=== PATIENT | female | born 1945 | race Caucasian/White ===

== ENCOUNTER 2018-07-08 04:02 | Observation (INO) ==
--- NOTE | 2018-07-08 04:23 | Emergency Department Note ---
Disposition Clinical Impression: UTI (urinary tract infection), Dehydration, Change in mental status Disposition: Admitted As Inpatient Condition: Fair General Adult HPI - General Chief complaint: ED General Medical Stated complaint: WILLIE/ swollen legs Time Seen by Provider: 07/08/18 04:04 Source: patient Mode of arrival: private vehicle Limitations: no limitations Nursing Notes Reviewed: Yes Vital Signs Reviewed: Yes - History of Present Illness HPI Narrative: 73-year-old female with a history of diabetes, asthma, hyperlipidemia, hypertension, rheumatoid arthritis, RLS, anxiety, depression presents to emergency room for 2 days of "feeling hot", "I worry about my heart because my sister had a heart attack", "my legs are swollen". Patient does state that she "gets tired easier" when walking around her house. Patient states multiple recent falls with bruising, states history of a blood clot in her leg with Dr. grider on aspirin for, who said this was relatively recently but the doctor said "not to worry about it". Pt states current infection to right ear, she is on ear gtts. Previous surgerys to ears, last in 1999 Patient is accompanied with daughter who states patient has been slowly "declining" since the of her . According to the daughter, patient had just taken her Ambien at 3:30 AM. Daughter states patient typically lives at home is completely independent. She states she has noticed an increase in anxiety since patient's a few months ago. Over the last few days daughter states patient is has not been "right." Daughter states edema to bilateral lower legs is chronic and waxes and wanes based on sleeping position, she does not notice an increase in the bilateral lower extremity edema. Daughter states patient has been falling more in the daughter is not convinced that it is due to the ear infection. Daughter states patient did have a blood clot to her leg though it was "not a major 1", it was right behind her knee. Patient and daughter both deny fever, chills, wheezing, coughing, rhinorrhea, postnasal drip, abdominal pain, nausea, vomiting, diarrhea, genitourinary changes, hematemesis, hematochezia, melena. Onset (ago): day(s) - Related Data Home Medications Medication Instructions Recorded Confirmed Albuterol Sulfate [Ventolin Hfa] 2 puff IH Q4H PRN 07/08/18 07/08/18 Aspirin [Lo-Dose Aspirin EC] 81 mg PO DAILY 07/08/18 07/08/18 Calcium Citrate/Vitamin D3 1 each PO DAILY 07/08/18 07/08/18 [Calcium Citrate with D Tablet] Cetirizine HCl [24Hour Allergy] 10 mg PO DAILY 07/08/18 07/08/18 Cholecalciferol (D-3) [Vitamin D] 2,000 unit PO DAILY 07/08/18 07/08/18 Citalopram Hydrobromide [Celexa] 40 mg PO DAILY 07/08/18 07/08/18 Folic Acid 1 mg PO DAILY 07/08/18 07/08/18 Gabapentin [Neurontin] 1,200 mg PO BID 07/08/18 07/09/18 Hydrochlorothiazide [Microzide] 25 mg PO DAILY 07/08/18 07/08/18 Leucovorin Calcium [Wellcovorin] 5 mg PO QWEEK 07/08/18 07/08/18 Losartan Potassium [Cozaar] 100 mg PO DAILY 07/08/18 07/08/18 Methotrexate [Otrexup] 17.5 mg PO DEL CID 07/08/18 07/08/18 Multivit-Min/Iron/Folic Acid/K 1 tab PO DAILY 07/08/18 07/08/18 [Adults Multivitamin Caplet] Ofloxacin *EAR* Drops [Floxin] 10 drop LEFT EAR HS MDD FOR 7 DAYS 07/08/1807/08 PredniSONE [Madhu] 5 mg PO BID PRN 07/08/18 07/08/18 Ranitidine HCl [Acid Fleet Technician] 150 mg PO HS 07/08/18 07/08/18 Ropinirole HCl [Requip] 5 mg PO HS 07/08/18 07/08/18 Sulfasalazine [Azulfidine] 500 mg PO BID 07/08/18 07/08/18 Tocilizumab [Actemra] mg IV Q4W 07/08/18 Tramadol HCl [Ultram] 50 - 100 mg PO Q6H PRN 07/08/18 07/08/18 Zolpidem [Ambien] 5 mg PO HS 07/08/18 07/08/18 hydrOXYzine HCl [Hydroxyzine HCl] 25 mg PO HS PRN 07/08/18 07/08/18 rOPINIRole [Requip] 2 mg PO DAILY 07/08/18 07/08/18 Allergies Allergy/AdvReac Type Severity Reaction Status Date / Time acetaminophen AdvReac Nausea Verified 07/08/18 09:10 [From Tylenol-Codeine #3] Amoxicillin AdvReac Vomiting Verified 07/08/18 09:10 codeine AdvReac Nausea Verified 07/08/18 09:10 [From Tylenol-Codeine #3] levofloxacin [From Levaquin] AdvReac Vomiting Verified 07/08/18 09:10 All systems ED: reviewed and negative except as stated. Review of Systems: As Per HPI Past Medical History - Past Medical History Attestation: Yes The following information was validated with the patient. Source: patient, old records reviewed Medical history: Reports: asthma, hyperlipidemia, hypertension, RA Surgical history: Reports: appendectomy, cholecystectomy, orthopedic, other, DIVINA /BSO Psychiatric history: Reports: anxiety, depression - Social History Smoking Status: Never smoker Smokeless Tobacco Status: No Alcohol use: Reports: occasionally Drug use: Reports: none Physical Exam - General Limitations: no limitations General appearance: alert, in no apparent distress - Head Head exam: atraumatic, normocephalic, normal inspection - Eye Eye exam: Present: normal appearance, PERRL, EOMI - ENT ENT exam: normal exam, mucous membranes moist - Expanded ENT Exam External ear exam: Present: normal external inspection TM/Canal: Erythema: Left TM, Cerumen impaction: Left TM, Canal tenderness: Left TM Mouth exam: Present: normal external inspection Teeth exam: Present: normal inspection Throat exam: Present: normal inspection - Neck Neck exam: Present: normal inspection, full ROM, trachea midline. Absent: tenderness, lymphadenopathy - Chest Chest inspection: Present: normal inspection, symmetric chest wall rise - Respiratory Respiratory exam: Present: normal lung sounds bilaterally - Cardiovascular Cardiovascular exam: Present: regular rate, normal rhythm, normal heart sounds, other (Bilateral pedal edema left greater than right, 2+ pitting) - Abdominal Exam Abdominal exam: Present: soft, Non-Tender, normal bowel sounds. Absent: tenderness, distention, guarding, rebound, rigidity, organomegaly, Frazier's sign , Rovsing's sign, mass - Expanded Lower Extremity Exam Hip/Pelvis exam: Present: normal inspection, full ROM Upper leg exam: Present: normal inspection, full ROM Knee exam: Present: full ROM, tenderness (With palpation right knee), ecchymosis (Large, feeding with right knee), knee extension intact. Absent: swelling, abrasion, laceration, deformity, crepitus, dislocation, erythema Lower leg exam: Present: normal inspection, full ROM Ankle exam: Present: normal inspection, full ROM Foot/toe exam: Present: normal inspection, full ROM Neurovascular/Tendon exam: Present: normal capillary refill, normal 2-point discrimination. Absent: pulse deficit, motor deficit, sensory deficit Gait: observed and normal - Back Exam Back exam: Present: normal inspection, full ROM. Absent: tenderness - Neurological Exam Neurological exam: Present: alert, oriented X3 - Expanded Neurological Exam Patient oriented to: Present: person, place, time Speech: Present: fluid speech Coma Scale Eye Opening: Spontaneous Coma Scale Motor Response: Obeys Commands Coma Scale Verbal Response: Oriented Coma Scale Total: 15 - Psychiatric Psychiatric exam: Present: normal affect, normal mood - Skin Skin exam: Present: warm, dry, intact, normal color Course Course Narrative: 73-year-old pleasantly confused female in no acute distress. Patient is alert and oriented 3 though she does appear slightly confused with conversation. Unsure if this is due to illness, or recent ingestion of Ambien. Physical exam shows patient moving bilateral lower extremities frequently and rubbing them, appropriate for RLS, right knee noted with fading ecchymosis, pain with movement and palpation to the patella region. Various ecchymosis to bilateral legs, trunk in various stages of healing due to recent falls. Patient ambulates with a slow and unsteady gait. We will obtain basic labs, chest x-ray, EKG and reevaluate. Review of records shows venous duplex in March 2018 with occluded varicose vein to the left calf. All of the deep venous systems were negative for DVT. - Reevaluation(s) Reevaluation #1: Patient has continued to be very anxious, moving her legs and rocking. We gave a dose of Ativan without resolution, we will add a small dose of Haldol. Ordered CT of the head without contrast for evaluation due to recent falls, apparent alteration in mental status. Last labs we have in our system or from 2015, face up on those labs the CBC is benign, patient is hemoglobin slightly low at 11.2, red blood cells 2.99 though looking at previous labs she was around there frequently. Metabolic panel shows an elevated creatinine, elevated BUN, decrease in GFR compared to most recent labs which again were in 2016. UA reveals positive nitrites, leukocyte esterases, white blood cells indicative of UTI. Chest x-ray is unremarkable, right knee x-rays unremarkable. Plan is for admission for acute kidney injury, altered mental status, UTI pending head CT. Time: 06:18 Vital Signs Temperature 98.1 F 07/08/18 04:06 Pulse Rate 89 07/08/18 04:06 Respiratory Rate 20 07/08/18 04:06 Blood Pressure 144/106 07/08/18 04:06 O2 Sat by Pulse Oximetry 97 07/08/18 04:06 Temperature 98.2 F 07/09/18 18:44 Pulse Rate 80 07/09/18 18:44 Respiratory Rate 17 07/09/18 18:44 Blood Pressure 133/72 07/09/18 18:44 O2 Sat by Pulse Oximetry 93 07/09/18 18:44 Oxygen Delivery Oxygen Delivery Room Air Medical Decision Making - Lab Data Result diagrams: 07/09/18 08:26 07/09/18 06:19 Lab Results 07/08/18 07/08/18 07/08/18 Range/Units 04:20 04:20 04:20 WBC 5.1 (4.3-11.1) K/mcL RBC 2.99 L (3.82-4.97) M/mcL Hgb 11.2 L (11.5-15.4) g/dL Hct 32.1 L (35.3-44.9) % MCV 107.4 H (83.0-100.0) fL MCH 37.5 H (28.0-33.3) pg MCHC 34.9 (31.6-35.5) g/dL RDW 12.9 (11.5-14.5) % Plt Count 166 (140-400) K/mcL MPV 10.2 (9.4-12.4) fL Immature Gran % 0.2 (0-4) % Seg Neutrophils % 61.5 % Lymphocytes % 15.8 % Monocytes % 16.6 % Eosinophils % 4.7 % Basophils % 1.2 % Neutrophils # 3.1 (1.6-8.9) K/mcL Lymphocytes # 0.8 (0.6-4.6) K/mcL Monocytes # 0.8 (0.0-1.3) K/mcL Eosinophils # 0.2 (0.0-0.6) K/mcL Basophils # 0.1 (0.0-0.2) K/mcL Sodium 136 (136-145) mEq/L Potassium 3.9 (3.5-5.1) mEq/L Chloride 104 (98-107) mEq/L Carbon Dioxide 25 (23-29) mEq/L BUN 28 H (8-23) mg/dL Creatinine 1.42 H (0.60-1.20) mg/dL Est GFR ( Amer) 44 L (> 60) Est GFR (Non-Af Amer) 36 L (> 60) BUN/Creatinine Ratio 20 (6-26) Glucose 119 H (70-105) mg/dL Calculated Osmolality 289 (280-300) Calcium 9.0 (8.6-10.3) mg/dL Iron 111 (50-170) mcg/dL % Saturation 32 (15-50) % Transferrin 245 (203-362) mg/dL Ferritin 105 (10-120) ng/mL Total Bilirubin 0.3 (0.3-1.0) mg/dL Direct Bilirubin 0.0 (0.0-0.2) mg/dL Indirect Bilirubin 0.3 (0.0-1.2) mg/dL AST 31 (13-39) Units/L ALT 31 (7-52) Units/L Alkaline Phosphatase 46 (34-104) Units/L Troponin I < 0.03 (< 0.04) ng/mL Serum Total Protein 6.0 L (6.4-8.9) g/dL Albumin 4.0 (3.5-5.7) g/dL Globulin 2.0 L (2.4-3.5) g/dL Albumin/Globulin Ratio 2.0 (1.1-2.2) Urine Color (Yellow) Urine Clarity (Clear) Urine pH (5.0-8.0) pH Units Ur Specific [place] (1.010-1.025) Urine Protein (Neg-Trace) mg/dL Urine Glucose (UA) (Normal) mg/dL Urine Ketones (Negative) mg/dL Urine Blood (Negative) Urine Nitrite (Negative) Urine Bilirubin (Negative) Urine Urobilinogen (Normal) mg/dL Ur Leukocyte Esterase (Negative) Urine Microscopic RBC (0-3) per hpf Urine Microscopic WBC (0-3) per hpf Ur Squamous Epith Cells (None-Few) per lpf Urine Bacteria (None-Few) per hpf Hyaline Casts (None-Few) per lpf Ur Culture Indicated? (NO) 07/08/18 Range/Units 05:41 WBC (4.3-11.1) K/mcL RBC (3.82-4.97) M/mcL Hgb (11.5-15.4) g/dL Hct (35.3-44.9) % MCV (83.0-100.0) fL MCH (28.0-33.3) pg MCHC (31.6-35.5) g/dL RDW (11.5-14.5) % Plt Count (140-400) K/mcL MPV (9.4-12.4) fL Immature Gran % (0-4) % Seg Neutrophils % % Lymphocytes % % Monocytes % % Eosinophils % % Basophils % % Neutrophils # (1.6-8.9) K/mcL Lymphocytes # (0.6-4.6) K/mcL Monocytes # (0.0-1.3) K/mcL Eosinophils # (0.0-0.6) K/mcL Basophils # (0.0-0.2) K/mcL Sodium (136-145) mEq/L Potassium (3.5-5.1) mEq/L Chloride (98-107) mEq/L Carbon Dioxide (23-29) mEq/L BUN (8-23) mg/dL Creatinine (0.60-1.20) mg/dL Est GFR ( Amer) (> 60) Est GFR (Non-Af Amer) (> 60) BUN/Creatinine Ratio (6-26) Glucose (70-105) mg/dL Calculated Osmolality (280-300) Calcium (8.6-10.3) mg/dL Iron (50-170) mcg/dL % Saturation (15-50) % Transferrin (203-362) mg/dL Ferritin (10-120) ng/mL Total Bilirubin (0.3-1.0) mg/dL Direct Bilirubin (0.0-0.2) mg/dL Indirect Bilirubin (0.0-1.2) mg/dL AST (13-39) Units/L ALT (7-52) Units/L Alkaline Phosphatase (34-104) Units/L Troponin I (< 0.04) ng/mL Serum Total Protein (6.4-8.9) g/dL Albumin (3.5-5.7) g/dL Globulin (2.4-3.5) g/dL Albumin/Globulin Ratio (1.1-2.2) Urine Color Yellow (Yellow) Urine Clarity Clear (Clear) Urine pH 6.0 (5.0-8.0) pH Units Ur Specific [place] 1.010 (1.010-1.025) Urine Protein Negative (Neg-Trace) mg/dL Urine Glucose (UA) Normal (Normal) mg/dL Urine Ketones Negative (Negative) mg/dL Urine Blood Negative (Negative) Urine Nitrite Positive A (Negative) Urine Bilirubin Negative (Negative) Urine Urobilinogen Normal (Normal) mg/dL Ur Leukocyte Esterase Small H (Negative) Urine Microscopic RBC 0-3 (0-3) per hpf Urine Microscopic WBC 5-15 H (0-3) per hpf Ur Squamous Epith Cells Moderate H (None-Few) per lpf Urine Bacteria Many H (None-Few) per hpf Hyaline Casts None Seen (None-Few) per lpf Ur Culture Indicated? YES A (NO) S.B.A.R. - S.B.A.R. Situation: Demographics, MOA Background: Presenting Complaint, Relevant PMH, Meds, & Allergies Assessment: Vital Signs, Course and respsone to treatment, Exam Concerns, Patient/Family Expectation, Pertinant Lab Results, Outstanding Labs Recommendation: Barrier(s) to disposition, Recommendation based on pending studies, treatments, or consults S.B.A.R. Report Given to: Roscoe Mercer CNP S.B.A.R. Repor Time: 06:00
[2018-07-08 04:32] LABS: Basophils # 0.1 K/mcL (0.0-0.2); Basophils % 1.2 %; Eosinophils # 0.2 K/mcL (0.0-0.6); Eosinophils % 4.7 %; Hematocrit 32.1 % (35.3-44.9); Hemoglobin 11.2 g/dL (11.5-15.4); Immature Granulocytes % 0.2 % (0-4); Lymphocytes # 0.8 K/mcL (0.6-4.6); Lymphocytes % 15.8 %; Mean Corpuscular HGB Conc 34.9 g/dL (31.6-35.5); Mean Corpuscular Hemoglobin 37.5 pg (28.0-33.3); Mean Corpuscular Volume 107.4 fL (83.0-100.0); Mean Platelet Volume 10.2 fL (9.4-12.4); Monocytes # 0.8 K/mcL (0.0-1.3); Monocytes % 16.6 %; Neutrophils # 3.1 K/mcL (1.6-8.9); Platelet Count 166 K/mcL (140-400); Red Blood Count 2.99 M/mcL (3.82-4.97); Red Cell Distribution Width 12.9 % (11.5-14.5); Segmented Neutrophils % 61.5 %
[2018-07-08 05:01] LABS: Alanine Aminotransferase 31 Units/L (7-52); Alkaline Phosphatase 46 Units/L (34-104); Aspartate Amino Transferase 31 Units/L (13-39); BUN/Creatinine Ratio 20 (6-26); Bilirubin,Indirect 0.3 mg/dL (0.0-1.2); Bilirubin,Total 0.3 mg/dL (0.3-1.0); Blood Urea Nitrogen 28 mg/dL (8-23); Carbon Dioxide 25 mEq/L (23-29); Chloride 104 mEq/L (98-107); Glucose 119 mg/dL (70-105); Osmolality,Calculated 289 (280-300); Potassium 3.9 mEq/L (3.5-5.1); Sodium 136 mEq/L (136-145); Troponin I < 0.03 ng/mL (< 0.04); eGFR For Non-African Americans 36 (> 60)
[2018-07-08] MEDS ORDERED: *HR* LORazepam 2 MG/ML VIAL IVP ONE ×2 (05:26→06:52)
[2018-07-08 05:54] LABS: Bilirubin,Urine Negative (Negative); Blood,Urine Negative (Negative); Clarity,Urine Clear (Clear); Color,Urine Yellow (Yellow); Glucose,Urine (UA) Normal (Normal); Ketones,Urine Negative (Negative); Leukocyte Esterase,Urine Small (Negative); Nitrite,Urine Positive (Negative); Protein,Urine Negative (Neg-Trace); Urobilinogen,Urine Normal (Normal)
[2018-07-08 05:56] LABS: Bacteria,Urine Many per hpf (None-Few); Hyaline Casts,Urine None Seen per lpf (None-Few); RBC,Urine 0-3 per hpf (0-3); Squamous Epithelial Cell,Urine Moderate per lpf (None-Few)
[2018-07-08] MEDS ORDERED: Haloperidol Lactate 5 MG/ML VIAL IVP ONE (05:59)
--- NOTE | 2018-07-08 06:52 | Emergency Department Note ---
Disposition Clinical Impression: Dehydration UTI (urinary tract infection) Qualifiers: Urinary tract infection type: site unspecified Hematuria presence: without hematuria Qualified Code(s): N39.0 - Urinary tract infection, site not specified Change in mental status Qualifiers: Altered mental status type: unspecified Qualified Code(s): R41.82 - Altered mental status, unspecified Disposition: Admitted As Inpatient Condition: Fair General Adult HPI - General Chief complaint: ED General Medical Stated complaint: WILLIE/ swollen legs Time Seen by Provider: 07/08/18 04:04 Source: patient Mode of arrival: private vehicle Limitations: no limitations Nursing Notes Reviewed: Yes Vital Signs Reviewed: Yes - History of Present Illness Pain Scale: 7 - Related Data Home Medications Medication Instructions Recorded Confirmed Albuterol Sulfate [Ventolin Hfa] 2 puff IH Q4H PRN 07/08/18 07/08/18 Aspirin [Lo-Dose Aspirin EC] 81 mg PO DAILY 07/08/18 07/08/18 Calcium Citrate/Vitamin D3 1 each PO DAILY 07/08/18 07/08/18 [Calcium Citrate with D Tablet] Cetirizine HCl [24Hour Allergy] 10 mg PO DAILY 07/08/18 07/08/18 Cholecalciferol (D-3) [Vitamin D] 2,000 unit PO DAILY 07/08/18 07/08/18 Citalopram Hydrobromide [Celexa] 40 mg PO DAILY 07/08/18 07/08/18 Folic Acid 1 mg PO DAILY 07/08/18 07/08/18 Gabapentin [Neurontin] 1,200 mg PO TID 07/08/18 07/08/18 Hydrochlorothiazide [Microzide] 25 mg PO DAILY 07/08/18 07/08/18 Leucovorin Calcium [Wellcovorin] 5 mg PO QWEEK 07/08/18 07/08/18 Losartan Potassium [Cozaar] 100 mg PO DAILY 07/08/18 07/08/18 Methotrexate [Otrexup] 17.5 mg PO DEL CID 07/08/18 07/08/18 Multivit-Min/Iron/Folic Acid/K 1 tab PO DAILY 07/08/18 07/08/18 [Adults Multivitamin Caplet] Ofloxacin *EAR* Drops [Floxin] 10 drop LEFT EAR HS MDD FOR 7 DAYS 07/08/1807/08 PredniSONE [Madhu] 5 mg PO BID PRN 07/08/18 07/08/18 Ranitidine HCl [Acid Wine Maker] 150 mg PO HS 07/08/18 07/08/18 Ropinirole HCl [Requip] 5 mg PO HS 07/08/18 07/08/18 Sulfasalazine [Azulfidine] 500 mg PO BID 07/08/18 07/08/18 Tocilizumab [Actemra] mg IV Q4W 07/08/18 Tramadol HCl [Ultram] 50 - 100 mg PO Q6H PRN 07/08/18 07/08/18 Zolpidem [Ambien] 5 mg PO HS 07/08/18 07/08/18 hydrOXYzine HCl [Hydroxyzine HCl] 25 mg PO HS PRN 07/08/18 07/08/18 rOPINIRole [Requip] 2 mg PO DAILY 07/08/18 07/08/18 Allergies Allergy/AdvReac Type Severity Reaction Status Date / Time acetaminophen AdvReac Nausea Verified 07/08/18 09:10 [From Tylenol-Codeine #3] Amoxicillin AdvReac Vomiting Verified 07/08/18 09:10 codeine AdvReac Nausea Verified 07/08/18 09:10 [From Tylenol-Codeine #3] levofloxacin [From Levaquin] AdvReac Vomiting Verified 07/08/18 09:10 Past Medical History - Past Medical History Medical history: Reports: asthma, hyperlipidemia, hypertension, RA Surgical history: Reports: appendectomy, cholecystectomy, orthopedic, other, DIVINA /BSO Psychiatric history: Reports: anxiety, depression - Social History Smoking Status: Never smoker Smokeless Tobacco Status: No Alcohol use: Reports: occasionally Drug use: Reports: none Physical Exam - General Limitations: no limitations General appearance: alert, in no apparent distress Course Vital Signs Temperature 98.1 F 07/08/18 04:06 Pulse Rate 89 07/08/18 04:06 Respiratory Rate 20 07/08/18 04:06 Blood Pressure 144/106 07/08/18 04:06 O2 Sat by Pulse Oximetry 97 07/08/18 04:06 Temperature 97.9 F 07/08/18 15:50 Pulse Rate 65 07/08/18 15:50 Respiratory Rate 18 07/08/18 15:50 Blood Pressure 141/62 07/08/18 15:50 O2 Sat by Pulse Oximetry 100 07/08/18 15:50 Oxygen Delivery Oxygen Delivery Room Air Medical Decision Making - Lab Data Lab results reviewed: Yes I reviewed the patient's lab results. Result diagrams: 07/08/18 04:20 07/08/18 04:20 Lab Results 07/08/18 07/08/18 07/08/18 Range/Units 04:20 04:20 04:20 WBC 5.1 (4.3-11.1) K/mcL RBC 2.99 L (3.82-4.97) M/mcL Hgb 11.2 L (11.5-15.4) g/dL Hct 32.1 L (35.3-44.9) % MCV 107.4 H (83.0-100.0) fL MCH 37.5 H (28.0-33.3) pg MCHC 34.9 (31.6-35.5) g/dL RDW 12.9 (11.5-14.5) % Plt Count 166 (140-400) K/mcL MPV 10.2 (9.4-12.4) fL Immature Gran % 0.2 (0-4) % Seg Neutrophils % 61.5 % Lymphocytes % 15.8 % Monocytes % 16.6 % Eosinophils % 4.7 % Basophils % 1.2 % Neutrophils # 3.1 (1.6-8.9) K/mcL Lymphocytes # 0.8 (0.6-4.6) K/mcL Monocytes # 0.8 (0.0-1.3) K/mcL Eosinophils # 0.2 (0.0-0.6) K/mcL Basophils # 0.1 (0.0-0.2) K/mcL Sodium 136 (136-145) mEq/L Potassium 3.9 (3.5-5.1) mEq/L Chloride 104 (98-107) mEq/L Carbon Dioxide 25 (23-29) mEq/L BUN 28 H (8-23) mg/dL Creatinine 1.42 H (0.60-1.20) mg/dL Est GFR ( Amer) 44 L (> 60) Est GFR (Non-Af Amer) 36 L (> 60) BUN/Creatinine Ratio 20 (6-26) Glucose 119 H (70-105) mg/dL Calculated Osmolality 289 (280-300) Calcium 9.0 (8.6-10.3) mg/dL Iron 111 (50-170) mcg/dL % Saturation 32 (15-50) % Transferrin 245 (203-362) mg/dL Ferritin 105 (10-120) ng/mL Total Bilirubin 0.3 (0.3-1.0) mg/dL Direct Bilirubin 0.0 (0.0-0.2) mg/dL Indirect Bilirubin 0.3 (0.0-1.2) mg/dL AST 31 (13-39) Units/L ALT 31 (7-52) Units/L Alkaline Phosphatase 46 (34-104) Units/L Troponin I < 0.03 (< 0.04) ng/mL Serum Total Protein 6.0 L (6.4-8.9) g/dL Albumin 4.0 (3.5-5.7) g/dL Globulin 2.0 L (2.4-3.5) g/dL Albumin/Globulin Ratio 2.0 (1.1-2.2) Urine Color (Yellow) Urine Clarity (Clear) Urine pH (5.0-8.0) pH Units Ur Specific [place] (1.010-1.025) Urine Protein (Neg-Trace) mg/dL Urine Glucose (UA) (Normal) mg/dL Urine Ketones (Negative) mg/dL Urine Blood (Negative) Urine Nitrite (Negative) Urine Bilirubin (Negative) Urine Urobilinogen (Normal) mg/dL Ur Leukocyte Esterase (Negative) Urine Microscopic RBC (0-3) per hpf Urine Microscopic WBC (0-3) per hpf Ur Squamous Epith Cells (None-Few) per lpf Urine Bacteria (None-Few) per hpf Hyaline Casts (None-Few) per lpf Ur Culture Indicated? (NO) 07/08/18 Range/Units 05:41 WBC (4.3-11.1) K/mcL RBC (3.82-4.97) M/mcL Hgb (11.5-15.4) g/dL Hct (35.3-44.9) % MCV (83.0-100.0) fL MCH (28.0-33.3) pg MCHC (31.6-35.5) g/dL RDW (11.5-14.5) % Plt Count (140-400) K/mcL MPV (9.4-12.4) fL Immature Gran % (0-4) % Seg Neutrophils % % Lymphocytes % % Monocytes % % Eosinophils % % Basophils % % Neutrophils # (1.6-8.9) K/mcL Lymphocytes # (0.6-4.6) K/mcL Monocytes # (0.0-1.3) K/mcL Eosinophils # (0.0-0.6) K/mcL Basophils # (0.0-0.2) K/mcL Sodium (136-145) mEq/L Potassium (3.5-5.1) mEq/L Chloride (98-107) mEq/L Carbon Dioxide (23-29) mEq/L BUN (8-23) mg/dL Creatinine (0.60-1.20) mg/dL Est GFR ( Amer) (> 60) Est GFR (Non-Af Amer) (> 60) BUN/Creatinine Ratio (6-26) Glucose (70-105) mg/dL Calculated Osmolality (280-300) Calcium (8.6-10.3) mg/dL Iron (50-170) mcg/dL % Saturation (15-50) % Transferrin (203-362) mg/dL Ferritin (10-120) ng/mL Total Bilirubin (0.3-1.0) mg/dL Direct Bilirubin (0.0-0.2) mg/dL Indirect Bilirubin (0.0-1.2) mg/dL AST (13-39) Units/L ALT (7-52) Units/L Alkaline Phosphatase (34-104) Units/L Troponin I (< 0.04) ng/mL Serum Total Protein (6.4-8.9) g/dL Albumin (3.5-5.7) g/dL Globulin (2.4-3.5) g/dL Albumin/Globulin Ratio (1.1-2.2) Urine Color Yellow (Yellow) Urine Clarity Clear (Clear) Urine pH 6.0 (5.0-8.0) pH Units Ur Specific [place] 1.010 (1.010-1.025) Urine Protein Negative (Neg-Trace) mg/dL Urine Glucose (UA) Normal (Normal) mg/dL Urine Ketones Negative (Negative) mg/dL Urine Blood Negative (Negative) Urine Nitrite Positive A (Negative) Urine Bilirubin Negative (Negative) Urine Urobilinogen Normal (Normal) mg/dL Ur Leukocyte Esterase Small H (Negative) Urine Microscopic RBC 0-3 (0-3) per hpf Urine Microscopic WBC 5-15 H (0-3) per hpf Ur Squamous Epith Cells Moderate H (None-Few) per lpf Urine Bacteria Many H (None-Few) per hpf Hyaline Casts None Seen (None-Few) per lpf Ur Culture Indicated? YES A (NO) - Radiology Data Radiology results reviewed: Yes I reviewed the patient's radiology results. Chest X-Ray 07/08/18 04:15 IMPRESSION: No acute disease. D/ / Go Munoz MD / Go Munoz MD Interpreting Provider: Go Munoz MD Knee X-Ray 07/08/18 04:34 IMPRESSION: No fracture or malalignment. D/ / Go Munoz MD / Go Munoz MD Interpreting Provider: Go Munoz MD - EKG Data EKG #1 EKG attestation: Yes I reviewed and interpreted this EKG. EKG results narrative: EKG shows a normal sinus rhythm with ventricular rate of 92. Low voltage in precordial leads. No acute ST segment elevation or depression. Attestation Statement - Attestation Attestation: I, Otto Felix MD, personally evaluated this patient and discussed their management with the midlevel provicer, PAC/AUTOMOTIVE ELECTRICAL FITTER. I reviewed the midlevel provider 's note and agree with the documented findings, medical decision making, and plan of care. 73-year-old female presents to the emergency department with daughter complaining of increased shortness of breath as well as increased swelling of the lower extremities. Also she states that the patient has fallen a couple of times recently. She did not hit her head. Patient lives alone. She is somewhat restless and agitated. She does have restless leg syndrome. She apparently has been steadily declining since her . On examination patient is a well-developed obese elderly female in no acute distress. She is alert but seems mildly confused. She is restless and thrashing on the stretcher. No cyanosis or diaphoresis. Breath sounds are clear and equal bilaterally. Heart regular rate and rhythm. Abdomen soft and nontender with normal bowel sounds. 2+ pedal edema bilaterally. Labs reviewed. EKG shows a normal sinus rhythm with no acute ischemic changes. Chest x-ray negative. X-ray of the right knee negative. Patient awaiting CT of the head and plan is to consult the hospitalist for admission afterward.
[2018-07-08] MEDS ORDERED: cefTRIAXone 2,000 MG in 0.9 % Sodium Chloride Mini Bag 100 ML IVPB ONE (07:06)
[2018-07-08] MEDS ORDERED: 0.9 % Sodium Chloride 1,000 ML IVC ONE (07:06)
[2018-07-08] MEDS ORDERED: cefTRIAXone 2,000 MG in Water for inj. (sterile) 20 ML 20 ML IVP ONE (07:07)
--- NOTE | 2018-07-08 10:14 | Emergency Department Note ---
Disposition Clinical Impression: Dehydration UTI (urinary tract infection) Qualifiers: Urinary tract infection type: site unspecified Hematuria presence: without hematuria Qualified Code(s): N39.0 - Urinary tract infection, site not specified Change in mental status Qualifiers: Altered mental status type: unspecified Qualified Code(s): R41.82 - Altered mental status, unspecified Disposition: Admitted As Inpatient Condition: Fair Referrals: Zaida Reyes MD [Primary Care Provider] - Forms: ED Satisfaction Letter, Work/School Release General Adult HPI - General Chief complaint: ED General Medical Stated complaint: WILLIE/ swollen legs Time Seen by Provider: 07/08/18 04:04 Source: patient Mode of arrival: private vehicle Limitations: no limitations - History of Present Illness Pain Scale: 7 - Related Data Home Medications Medication Instructions Recorded Confirmed Albuterol Sulfate [Ventolin Hfa] 2 puff IH Q4H PRN 07/08/18 07/08/18 Aspirin [Lo-Dose Aspirin EC] 81 mg PO DAILY 07/08/18 07/08/18 Calcium Citrate/Vitamin D3 1 each PO DAILY 07/08/18 07/08/18 [Calcium Citrate with D Tablet] Cetirizine HCl [24Hour Allergy] 10 mg PO DAILY 07/08/18 07/08/18 Cholecalciferol (D-3) [Vitamin D] 2,000 unit PO DAILY 07/08/18 07/08/18 Citalopram Hydrobromide [Celexa] 40 mg PO DAILY 07/08/18 07/08/18 Folic Acid 1 mg PO DAILY 07/08/18 07/08/18 Gabapentin [Neurontin] 1,200 mg PO TID 07/08/18 07/08/18 Hydrochlorothiazide [Microzide] 25 mg PO DAILY 07/08/18 07/08/18 Leucovorin Calcium [Wellcovorin] 5 mg PO QWEEK 07/08/18 07/08/18 Losartan Potassium [Cozaar] 100 mg PO DAILY 07/08/18 07/08/18 Methotrexate [Otrexup] 17.5 mg PO DEL CID 07/08/18 07/08/18 Multivit-Min/Iron/Folic Acid/K 1 tab PO DAILY 07/08/18 07/08/18 [Adults Multivitamin Caplet] Ofloxacin *EAR* Drops [Floxin] 10 drop LEFT EAR HS MDD FOR 7 DAYS 07/08/1807/08 PredniSONE [Madhu] 5 mg PO BID PRN 07/08/18 07/08/18 Ranitidine HCl [Acid Assistant Administrator] 150 mg PO HS 07/08/18 07/08/18 Ropinirole HCl [Requip] 5 mg PO HS 07/08/18 07/08/18 Sulfasalazine [Azulfidine] 500 mg PO BID 07/08/18 07/08/18 Tocilizumab [Actemra] mg IV Q4W 07/08/18 Tramadol HCl [Ultram] 50 - 100 mg PO Q6H PRN 07/08/18 07/08/18 Zolpidem [Ambien] 5 mg PO HS 07/08/18 07/08/18 hydrOXYzine HCl [Hydroxyzine HCl] 25 mg PO HS PRN 07/08/18 07/08/18 rOPINIRole [Requip] 2 mg PO DAILY 07/08/18 07/08/18 Allergies Allergy/AdvReac Type Severity Reaction Status Date / Time acetaminophen AdvReac Nausea Verified 07/08/18 09:10 [From Tylenol-Codeine #3] Amoxicillin AdvReac Vomiting Verified 07/08/18 09:10 codeine AdvReac Nausea Verified 07/08/18 09:10 [From Tylenol-Codeine #3] levofloxacin [From Levaquin] AdvReac Vomiting Verified 07/08/18 09:10 Past Medical History - Past Medical History Medical history: Reports: asthma, hyperlipidemia, hypertension, RA Surgical history: Reports: appendectomy, cholecystectomy, orthopedic, other, DIVINA /BSO Psychiatric history: Reports: anxiety, depression - Social History Smoking Status: Never smoker Smokeless Tobacco Status: No Alcohol use: Reports: occasionally Drug use: Reports: none Physical Exam - General Limitations: no limitations General appearance: alert, in no apparent distress Course Vital Signs Temperature 98.1 F 07/08/18 04:06 Pulse Rate 89 07/08/18 04:06 Respiratory Rate 20 07/08/18 04:06 Blood Pressure 144/106 07/08/18 04:06 O2 Sat by Pulse Oximetry 97 07/08/18 04:06 Temperature 98.1 F 07/08/18 04:06 Pulse Rate 97 07/08/18 10:17 Respiratory Rate 18 07/08/18 10:17 Blood Pressure 175/78 07/08/18 10:17 O2 Sat by Pulse Oximetry 98 07/08/18 10:17 Oxygen Delivery Oxygen Delivery Room Air Medical Decision Making - MDM Narrative Medical decision making narrative: Received report from Fredis Jackson ROTOPRINTER: 73 year old female presents with mental status change and frequently fall in the past one week. Per pt's daughter, pt couldn't sleep, acted "differently". No chills and fever. Pt had positive nitrite in UA, slightly elevated BUN and Cr. No acute change in head CT. Impression: UTI, dehydration, mental status change. pt is given IV fluids and Rocephin in ER. Pt will be admitted to hospital. 10:38, spoke with Hospitalist Dr. Cueto. pt is accepted. - Lab Data Result diagrams: 07/08/18 04:20 07/08/18 04:20 Lab Results 07/08/18 07/08/18 07/08/18 Range/Units 04:20 04:20 05:41 WBC 5.1 (4.3-11.1) K/mcL RBC 2.99 L (3.82-4.97) M/mcL Hgb 11.2 L (11.5-15.4) g/dL Hct 32.1 L (35.3-44.9) % MCV 107.4 H (83.0-100.0) fL MCH 37.5 H (28.0-33.3) pg MCHC 34.9 (31.6-35.5) g/dL RDW 12.9 (11.5-14.5) % Plt Count 166 (140-400) K/mcL MPV 10.2 (9.4-12.4) fL Immature Gran % 0.2 (0-4) % Seg Neutrophils % 61.5 % Lymphocytes % 15.8 % Monocytes % 16.6 % Eosinophils % 4.7 % Basophils % 1.2 % Neutrophils # 3.1 (1.6-8.9) K/mcL Lymphocytes # 0.8 (0.6-4.6) K/mcL Monocytes # 0.8 (0.0-1.3) K/mcL Eosinophils # 0.2 (0.0-0.6) K/mcL Basophils # 0.1 (0.0-0.2) K/mcL Sodium 136 (136-145) mEq/L Potassium 3.9 (3.5-5.1) mEq/L Chloride 104 (98-107) mEq/L Carbon Dioxide 25 (23-29) mEq/L BUN 28 H (8-23) mg/dL Creatinine 1.42 H (0.60-1.20) mg/dL Est GFR ( Amer) 44 L (> 60) Est GFR (Non-Af Amer) 36 L (> 60) BUN/Creatinine Ratio 20 (6-26) Glucose 119 H (70-105) mg/dL Calculated Osmolality 289 (280-300) Calcium 9.0 (8.6-10.3) mg/dL Total Bilirubin 0.3 (0.3-1.0) mg/dL Direct Bilirubin 0.0 (0.0-0.2) mg/dL Indirect Bilirubin 0.3 (0.0-1.2) mg/dL AST 31 (13-39) Units/L ALT 31 (7-52) Units/L Alkaline Phosphatase 46 (34-104) Units/L Troponin I < 0.03 (< 0.04) ng/mL Serum Total Protein 6.0 L (6.4-8.9) g/dL Albumin 4.0 (3.5-5.7) g/dL Globulin 2.0 L (2.4-3.5) g/dL Albumin/Globulin Ratio 2.0 (1.1-2.2) Urine Color Yellow (Yellow) Urine Clarity Clear (Clear) Urine pH 6.0 (5.0-8.0) pH Units Ur Specific [place] 1.010 (1.010-1.025) Urine Protein Negative (Neg-Trace) mg/dL Urine Glucose (UA) Normal (Normal) mg/dL Urine Ketones Negative (Negative) mg/dL Urine Blood Negative (Negative) Urine Nitrite Positive A (Negative) Urine Bilirubin Negative (Negative) Urine Urobilinogen Normal (Normal) mg/dL Ur Leukocyte Esterase Small H (Negative) Urine Microscopic RBC 0-3 (0-3) per hpf Urine Microscopic WBC 5-15 H (0-3) per hpf Ur Squamous Epith Cells Moderate H (None-Few) per lpf Urine Bacteria Many H (None-Few) per hpf Hyaline Casts None Seen (None-Few) per lpf Ur Culture Indicated? YES A (NO) - Radiology Data Radiology results reviewed: Yes I reviewed the patient's radiology results.
[2018-07-08] MEDS ORDERED: hydrOXYzine pamoate 25 MG CAPSULE PO PRN (11:54)
[2018-07-08] MEDS ORDERED: predniSONE 5 MG TABLET PO PRN (11:54)
[2018-07-08] MEDS ORDERED: Naloxone 0.4 MG/ML INJ IVP PRN (11:57)
[2018-07-08] MEDS ORDERED: Ringers Solution, Lactated 1,000 ML IVC SCH (12:00)
[2018-07-08] MEDS ORDERED: *HR* Labetalol 20 MG/4 ML SYRINGE IVP PRN (12:02)
[2018-07-08] MEDS ORDERED: *HR* LORazepam 2 MG/ML VIAL IVP PRN (12:02)
--- NOTE | 2018-07-08 12:14 | Internal Med History&Physical ---
Date of Encounter: 07/08/18 Time of Encounter: 12:04 Internal Medicine - H&P: HPI History of present illness: Ms. Mendoza is a 73 year old female with history of hypertension, rheumatoid arthritis, asthma, diabetes, chronic kidney disease, and heart failure presents to ED for altered mental status and frequent falls. Patient unable to provide history due to mental status and daughter and aunt provide history. For the past few weeks, patient has been having increase in falls, and lately change in behavior. She has had little sleep from progressively worsening restless leg syndrome. She has displayed change in behavior and daughter noticed that she also appears that her behavior has changed. They believe this happened since her has . In the ED, a CT of head showed no acute process. A urinalysis was positive for bacteria, WBCs, leukocyte esterase, and nitrites consistent with UTIs. She was given dose of Rocephin. Patient was agitated in the ED and required IV Ativan, Haldol, and Benadryl. At this moment she is less agitated. Past Med Surg Social Fam HX - Past Medical History Medical history: asthma, hyperlipidemia, hypertension, RA Additional medical history: restless leg syndrome Psychiatric history: anxiety, depression - Past Surgical History Surgical History: appendectomy, cholecystectomy, orthopedic, other, DIVINA/BSO Additional surgical history: ear, bladder, hemmorhoidectomy - Social History Smoking Status: Never smoker Smokeless Tobacco Status: No Alcohol use: occasionally Drug use: none Internal Medicine - H&P: Meds Albuterol Sulfate [Ventolin Hfa] 2 puff IH Q4H PRN 07/08/18 [History] Aspirin [Lo-Dose Aspirin EC] 81 mg PO DAILY 07/08/18 [History] Calcium Citrate/Vitamin D3 [Calcium Citrate with D Tablet] 1 each PO DAILY 07/08 [History] Cetirizine HCl [24Hour Allergy] 10 mg PO DAILY 07/08/18 [History] Cholecalciferol (D-3) [Vitamin D] 2,000 unit PO DAILY 07/08/18 [History] Citalopram Hydrobromide [Celexa] 40 mg PO DAILY 07/08/18 [History] Folic Acid 1 mg PO DAILY 07/08/18 [History] Gabapentin [Neurontin] 1,200 mg PO TID 07/08/18 [History] Hydrochlorothiazide [Microzide] 25 mg PO DAILY 07/08/18 [History] Leucovorin Calcium [Wellcovorin] 5 mg PO QWEEK 07/08/18 [History] Losartan Potassium [Cozaar] 100 mg PO DAILY 07/08/18 [History] Methotrexate [Otrexup] 17.5 mg PO DEL CID 07/08/18 [History] Multivit-Min/Iron/Folic Acid/K [Adults Multivitamin Caplet] 1 tab PO DAILY 07/08 [History] Ofloxacin *EAR* Drops [Floxin] 10 drop LEFT EAR HS MDD FOR 7 DAYS 07/08/18 [ History] PredniSONE [Madhu] 5 mg PO BID PRN 07/08/18 [History] Ranitidine HCl [Acid Research Pharmacist] 150 mg PO HS 07/08/18 [History] Ropinirole HCl [Requip] 5 mg PO HS 07/08/18 [History] Sulfasalazine [Azulfidine] 500 mg PO BID 07/08/18 [History] Tocilizumab [Actemra] mg IV Q4W 07/08/18 [History] Tramadol HCl [Ultram] 50 - 100 mg PO Q6H PRN 07/08/18 [History] Zolpidem [Ambien] 5 mg PO HS 07/08/18 [History] hydrOXYzine HCl [Hydroxyzine HCl] 25 mg PO HS PRN 07/08/18 [History] rOPINIRole [Requip] 2 mg PO DAILY 07/08/18 [History] 3 Allergy/AdvReac Type Severity Reaction Status Date / Time acetaminophen AdvReac Nausea Verified 07/08/18 09:10 [From Tylenol-Codeine #3] Amoxicillin AdvReac Vomiting Verified 07/08/18 09:10 codeine AdvReac Nausea Verified 07/08/18 09:10 [From Tylenol-Codeine #3] levofloxacin [From Levaquin] AdvReac Vomiting Verified 07/08/18 09:10 ROS unobtainable: due to mental status All Systems PM: A 10-system review of systems was performed and is negative for pertinent findings except as documented above in the HPI. - Constitutional Vitals: Temp Pulse Resp BP Pulse Ox 98.1 F 97 18 164/72 98 07/08/18 04:06 07/08/18 10:17 07/08/18 11:14 07/08/18 11:14 07/08/18 10:17 Exam: Physical exam is limited due to agitation. Sister and daughter at beside request limited physical exam since she is now calm. Gen: patient legs are moving in discomfort from restless legs, she is in no acute distress. CVS: RRR Lungs: CTAB Ext: trace non-pitting edema of right foot. Neuro: No focal deficits, but again this is not able to be a comprehensive exam. Internal Med - H&P Results - Labs CBC & Chem 7: 07/08/18 04:20 07/08/18 04:20 - Assessment and plan (1) Encephalopathy Current Visit: Yes Status: Acute Assessment and plan: Suspect this is from UTI. Other causes might include polypharmacy. Possibly psychogenic based on daughter and sister reports that this worsened when . She did have recent increase in gabapentin now 1,200 TID. - Patient not able to have an MRI or CTA brain because of metal in back and kidney injury. History does not appear consistent with acute CVA. - Cut back gabapentin to 600 mg TID instead of abrupt withdrawal. - Decrease ropinerole to 4 mg HS - Ativan 0.5 mg IV Q8H prn agitation. Will avoid Haldol for right now due to QT prolongation side effects. - Continue Rocephin, await blood cultures. - SW and PT/OT consult when patient stable. (2) Chronic kidney disease Current Visit: Yes Status: Acute Assessment and plan: Unsure baseline but cr on admission was 1.4. Recheck tomorrow after IV fluids today. Qualifiers: Chronic kidney disease stage: stage 3 (moderate) Qualified Code(s): N18.3 - Chronic kidney disease, stage 3 (moderate) (3) Dehydration Current Visit: Yes Status: Acute Assessment and plan: Gentle IV fluids, given patient's age and multiple co morbidities. Received 1 L IV fluids in ED. (4) UTI (urinary tract infection) Current Visit: Yes Status: Acute Assessment and plan: Rocephin. Follow-up urine cultures. Qualifiers: Urinary tract infection type: site unspecified Hematuria presence: without hematuria Qualified Code(s): N39.0 - Urinary tract infection, site not specified (5) Hypertension Current Visit: Yes Status: Acute Assessment and plan: Resume khanh emedications. Qualifiers: Hypertension type: essential hypertension Qualified Code(s): I10 - Essential (primary) hypertension (6) Hyperlipidemia Current Visit: Yes Status: Acute Qualifiers: Hyperlipidemia type: pure hypercholesterolemia Qualified Code(s): E78.00 - Pure hypercholesterolemia, unspecified; E78.0 - Pure hypercholesterolemia (7) Rheumatoid aortitis Current Visit: Yes Status: Acute Assessment and plan: Resume home medications. (8) Asthma Current Visit: Yes Status: Acute Assessment and plan: Place [facility] prn Resume home medications. Qualifiers: Asthma severity: unspecified severity Asthma persistence: intermittent Asthma complication type: uncomplicated Qualified Code(s): J45.20 - Mild intermittent asthma, uncomplicated (9) DVT prophylaxis Current Visit: Yes Status: Acute Assessment and plan: EPCD. She is a fall risk, will avoid heparin. - Time Spent With Patient Total time spent is greater than 50% in coordination of care (as documented) at patient's floor/unit and/or counseling patient:
[2018-07-08 13:04] LABS: % Iron Saturation 32 % (15-50); Iron 111 mcg/dL (50-170); Transferrin 245 mg/dL (203-362)
[2018-07-08 13:23] LABS: Ferritin 105 ng/mL (10-120)
[2018-07-08] MEDS ORDERED: *HR* Methotrexate 2.5 MG TABLET PO SCH (13:30)
[2018-07-08] MEDS: *HR* Heparin 5,000 UNIT/ML VIAL SQ SCH (16:22)
[2018-07-08] MEDS: Gabapentin 300 MG CAPSULE PO SCH ×2 (16:22→21:38)
[2018-07-08] MEDS ORDERED: Insulin LISPRO 300 UNITS/3 ML VIAL SQ SCH ×2 (17:00→21:00)
[2018-07-08] MEDS: Famotidine 20 MG TABLET PO SCH (21:38)
[2018-07-08] MEDS: sulfaSALAzine 500 MG TABLET PO SCH (21:39)
[2018-07-08] MEDS: Ofloxacin *EAR* Drops 5 ML BOTTLE LEFT EAR SCH (21:48)
[2018-07-09] MEDS: *HR* Heparin 5,000 UNIT/ML VIAL SQ SCH ×2 (05:13→17:42)
[2018-07-09] MEDS: Ibuprofen 400 MG TABLET PO PRN ×2 (05:13→20:53)
[2018-07-09 07:10] LABS: Calcium 8.4 mg/dL (8.6-10.3); Potassium 4.1 mEq/L (3.5-5.1)
[2018-07-09] MEDS: hydroCHLOROthiazide 25 MG TABLET PO SCH (08:52)
[2018-07-09] MEDS: Folic Acid 1 MG TABLET PO SCH (08:52)
[2018-07-09] MEDS: Gabapentin 300 MG CAPSULE PO SCH ×2 (08:52→20:53)
[2018-07-09] MEDS: Aspirin Enteric Coated 81 MG Tablet PO SCH (08:53)
[2018-07-09] MEDS: sulfaSALAzine 500 MG TABLET PO SCH ×2 (08:54→20:54)
[2018-07-09] MEDS ORDERED: rOPINIRole 1 MG TABLET PO SCH ×2 (09:00→21:15)
[2018-07-09 09:03] LABS: Basophils # 0.1 K/mcL (0.0-0.2); Basophils % 0.9 %; Eosinophils # 0.3 K/mcL (0.0-0.6); Eosinophils % 4.9 %; Hematocrit 34.9 % (35.3-44.9); Hemoglobin 11.7 g/dL (11.5-15.4); Immature Granulocytes % 0.2 % (0-4); Lymphocytes # 0.6 K/mcL (0.6-4.6); Lymphocytes % 9.6 %; Mean Corpuscular HGB Conc 33.5 g/dL (31.6-35.5); Mean Corpuscular Hemoglobin 36.3 pg (28.0-33.3); Mean Corpuscular Volume 108.4 fL (83.0-100.0); Mean Platelet Volume 10.4 fL (9.4-12.4); Monocytes # 0.8 K/mcL (0.0-1.3); Monocytes % 13.2 %; Neutrophils # 4.1 K/mcL (1.6-8.9); Platelet Count 165 K/mcL (140-400); Red Blood Count 3.22 M/mcL (3.82-4.97); Red Cell Distribution Width 13.2 % (11.5-14.5); Segmented Neutrophils % 71.2 %
--- NOTE | 2018-07-09 09:19 | Internal Med Progress Note ---
Hospitalist Progress Note - Encounter Date of Encounter: 07/09/18 Time of Encounter: 09:19 - Exam Vitals: Temp Pulse Resp BP Pulse Ox 97.8 F 51 14 150/78 99 07/09/18 07:57 07/09/18 07:57 07/09/18 07:57 07/09/18 07:57 07/09/18 07:57 Exam: General: Alert and oriented 3 lying Skin:Normal color, no rash, no lesions. HEENT:EOM, pupils equal, round and reactive. Cardiovascular:Normal S1 & S2, no rubs, murmurs or gallops. No JVD. Pulse regular. Lungs:Normal breath sounds, no wheezes or crackles. Abdomen:Soft, non-tender, no rigidity. Extremities:No deformity, no edema or tenderness, no joint swelling or clubbing. Neurological:Normal cognition. Cranial nerves II through XII intact. Pulses:Carotid and radial pulses normal +2. Rest of the physical exam is non contributory - Assessment and Plan (1) Encephalopathy Current Visit: Yes Status: Acute Assessment and Plan: Suspect this is from UTI. Other causes might include polypharmacy. Possibly psychogenic based on daughter and sister reports that this worsened when . She did have recent increase in gabapentin now 1,200 TID. She is now oriented and appropiate - Patient not able to have an MRI or CTA brain because of metal in back and kidney injury. History does not appear consistent with acute CVA. - Cut back gabapentin to 600 mg TID instead of abrupt withdrawal. - Decrease ropinerole to 4 mg HS - Ativan 0.5 mg IV Q8H prn agitation. - Continue Rocephin, await blood cultures. - SW and PT/OT consult (2) UTI (urinary tract infection) Current Visit: Yes Status: Acute Assessment and Plan: Rocephin. Follow-up urine cultures. (3) Dehydration Current Visit: Yes Status: Acute Assessment and Plan: Improving She was given IVF- now awake and appropriate tolerating oral intake (4) Chronic kidney disease Current Visit: Yes Status: Acute Assessment and Plan: Unsure baseline but cr on admission was 1.4 Received IVF . Improved 1.18 we will cont to monitor avoid nephrotoxins (5) Hypertension Current Visit: Yes Status: Acute Assessment and Plan: Resume khanh emedications. (6) Hyperlipidemia Current Visit: Yes Status: Acute Assessment and Plan: lipid profile in am (7) Rheumatoid aortitis Current Visit: Yes Status: Acute Assessment and Plan: Resume home medications. (8) Asthma Current Visit: Yes Status: Acute Assessment and Plan: stable - duo nebs prn Resume home medications. (9) DVT prophylaxis Current Visit: Yes Status: Acute Assessment and Plan: EPCD. She is a fall risk, will avoid heparin. - Time Spent with Patient Total time spent is greater than 50% in coordination of care (as documented) at patient's floor/unit and/or counseling patient: Internal Medicine: Result - Labs CBC & Chem 7: 07/09/18 08:26 07/09/18 06:19 Labs: BMP 07/09/18 06:19 Sodium 136 Potassium 4.1 Chloride 105 Carbon Dioxide 26 BUN 21 Creatinine 1.18 Glucose 101 Calcium 8.4 L Consult Discharge Plan - Plan Referrals: Zaida Reyes MD [Primary Care Provider] - (2) UTI (urinary tract infection) Qualifiers: Urinary tract infection type: site unspecified Hematuria presence: without hematuria Qualified Code(s): N39.0 - Urinary tract infection, site not specified (4) Chronic kidney disease Qualifiers: Chronic kidney disease stage: stage 3 (moderate) Qualified Code(s): N18.3 - Chronic kidney disease, stage 3 (moderate) (5) Hypertension Qualifiers: Hypertension type: essential hypertension Qualified Code(s): I10 - Essential (primary) hypertension (6) Hyperlipidemia Qualifiers: Hyperlipidemia type: pure hypercholesterolemia Qualified Code(s): E78.00 - Pure hypercholesterolemia, unspecified; E78.0 - Pure hypercholesterolemia (8) Asthma Qualifiers: Asthma severity: unspecified severity Asthma persistence: intermittent Asthma complication type: uncomplicated Qualified Code(s): J45.20 - Mild intermittent asthma, uncomplicated
[2018-07-09] MEDS: cefTRIAXone 2,000 MG in Water for inj. (sterile) 20 ML 20 ML IVP SCH (13:17)
[2018-07-09] MEDS ORDERED: Patient Taking Own Medication 1 EACH PO SCH (19:00)
[2018-07-09] MEDS: Ofloxacin *EAR* Drops 5 ML BOTTLE LEFT EAR SCH (20:53)
[2018-07-09] MEDS: Famotidine 20 MG TABLET PO SCH (20:53)
[2018-07-10] MEDS: rOPINIRole 1 MG TABLET PO SCH ×2 (00:33→20:46)
[2018-07-10] MEDS: *HR* Heparin 5,000 UNIT/ML VIAL SQ SCH ×2 (05:18→19:07)
[2018-07-10 05:38] LABS: Eosinophils # 0.3 K/mcL (0.0-0.6); Eosinophils % 6.5 %; Hematocrit 31.7 % (35.3-44.9); Hemoglobin 10.8 g/dL (11.5-15.4); Immature Granulocytes % 0.2 % (0-4); Lymphocytes # 0.7 K/mcL (0.6-4.6); Lymphocytes % 16.5 %; Mean Corpuscular HGB Conc 34.1 g/dL (31.6-35.5); Mean Corpuscular Hemoglobin 36.9 pg (28.0-33.3); Mean Corpuscular Volume 108.2 fL (83.0-100.0); Mean Platelet Volume 10.7 fL (9.4-12.4); Monocytes # 0.8 K/mcL (0.0-1.3); Monocytes % 18.2 %; Neutrophils # 2.4 K/mcL (1.6-8.9); Platelet Count 167 K/mcL (140-400); Red Blood Count 2.93 M/mcL (3.82-4.97); Red Cell Distribution Width 13.1 % (11.5-14.5); Segmented Neutrophils % 57.6 %
[2018-07-10 05:55] LABS: Chol/HDL Ratio 3.7 (0-4.9)
[2018-07-10 05:56] LABS: Calcium 8.6 mg/dL (8.6-10.3); Potassium 4.4 mEq/L (3.5-5.1)
[2018-07-10 06:09] LABS: Macrocytosis Present (Not Present); Platelet Estimate Normal (Normal)
--- NOTE | 2018-07-10 09:35 | Internal Med Progress Note ---
Hospitalist Progress Note - Encounter Date of Encounter: 07/10/18 Time of Encounter: 09:32 - Subjective Interval History: Patient seen and examined at bedside today. Admitted with acute encephalopathy , altered mental status secondary to UTI. Much improved today. Patient anxious for discharge. No acute changes overnight - Exam Vitals: Temp Pulse Resp BP Pulse Ox 97.3 F L 71 16 165/70 95 07/10/18 06:53 07/10/18 06:53 07/10/18 06:53 07/10/18 06:53 07/10/18 06:53 Exam: PHYSICAL EXAMINATION: GENERAL: The patient is an obese female in no apparent distress. She is alert and oriented x3. HEENT: Head is normocephalic and atraumatic. Extraocular muscles are intact. Pupils are equal, round, and reactive to light and accommodation. Nares appeared normal. Mouth is well hydrated and without lesions. Mucous membranes are moist. NECK: Supple. No carotid bruits. No lymphadenopathy or thyromegaly. LUNGS: Clear to auscultation. HEART: Regular rate and rhythm s1, s2, without murmur. ABDOMEN: Soft, nontender, and nondistended. Positive bowel sounds. No hepatosplenomegaly was noted. EXTREMITIES: Without any cyanosis, clubbing, rash, lesions or edema. NEUROLOGIC: Cranial nerves II through XII are grossly intact. SKIN: No ulceration or induration present. - Assessment and Plan (1) Encephalopathy Current Visit: Yes Status: Acute Assessment and Plan: Encephalopathy 2/2 UTI mental status has improved and returned to baseline there is also Possibly a psychogenic component as her daughter and sisters are reporting a worsened mental status since the of her She is also noted to have a recent increase in gabapentin dose which could also be contributing; mental status improved with treatment of UTI and decrease in gabapentin dose - Patient not able to have an MRI or CTA brain because of metal in back and kidney injury. History does not appear consistent with acute CVA. - Decrease ropinerole to 4 mg HS - Ativan 0.5 mg IV Q8H prn agitation. - Continue Rocephin - blood cultures pending - urine culture with ecoli-pansensitive cont with rocephin - SW and PT/OT consult (2) UTI (urinary tract infection) Current Visit: Yes Status: Acute Assessment and Plan: above (3) Dehydration Current Visit: Yes Status: Acute Assessment and Plan: gentle ivf recheck renal labs in am (4) Chronic kidney disease Current Visit: Yes Status: Acute Assessment and Plan: [er jx baseline unclear cr on admission 1.4, improved yesterday to 1.18, now 1.37 likely 2/2 dehydration and combination of HCTZ hold HCTZ now; gentle ivf x1 liter recheck renal fx in am avoid nephrotoxins (5) Hypertension Current Visit: Yes Status: Acute Assessment and Plan: per hx HTN this morning 165/70 but has not had am meds give am meds and monitor add anti-htn meds prn continue with PRN labetalol (6) Hyperlipidemia Current Visit: Yes Status: Acute Assessment and Plan: TG 144, total cholesterol 246, ldl 150, vldl 29, hdl 67 start pravastatin 10 mg hs rx at d/c (7) Rheumatoid aortitis Current Visit: Yes Status: Acute Assessment and Plan: per hx. Resume home medications. (8) Asthma Current Visit: Yes Status: Acute Assessment and Plan: per hx, stable - duo nebs prn Resume home medications. (9) DVT prophylaxis Current Visit: Yes Status: Acute Assessment and Plan: SC heparin. - Time Spent with Patient Total time spent is greater than 50% in coordination of care (as documented) at patient's floor/unit and/or counseling patient: less than 15 minutes Plan of Care Discussed with: patient Internal Medicine: Result - Labs CBC & Chem 7: 07/10/18 04:06 07/10/18 04:06 Labs: Short CBC 07/10/18 Range/Units 04:06 WBC 4.1 L (4.3-11.1) K/mcL Hgb 10.8 L (11.5-15.4) g/dL Hct 31.7 L (35.3-44.9) % Plt Count 167 (140-400) K/mcL Neutrophils # 2.4 (1.6-8.9) K/mcL BMP 07/10/18 04:06 Sodium 134 L Potassium 4.4 Chloride 102 Carbon Dioxide 24 BUN 28 H Creatinine 1.37 H Glucose 93 Calcium 8.6 Consult Discharge Plan - Plan Referrals: Zaida Reyes MD [Primary Care Provider] - (2) UTI (urinary tract infection) Qualifiers: Urinary tract infection type: site unspecified Hematuria presence: without hematuria Qualified Code(s): N39.0 - Urinary tract infection, site not specified (4) Chronic kidney disease Qualifiers: Chronic kidney disease stage: stage 3 (moderate) Qualified Code(s): N18.3 - Chronic kidney disease, stage 3 (moderate) (5) Hypertension Qualifiers: Hypertension type: essential hypertension Qualified Code(s): I10 - Essential (primary) hypertension (6) Hyperlipidemia Qualifiers: Hyperlipidemia type: pure hypercholesterolemia Qualified Code(s): E78.00 - Pure hypercholesterolemia, unspecified; E78.0 - Pure hypercholesterolemia (8) Asthma Qualifiers: Asthma severity: unspecified severity Asthma persistence: intermittent Asthma complication type: uncomplicated Qualified Code(s): J45.20 - Mild intermittent asthma, uncomplicated
[2018-07-10] MEDS: Aspirin Enteric Coated 81 MG Tablet PO SCH (10:06)
[2018-07-10] MEDS: Folic Acid 1 MG TABLET PO SCH (10:06)
[2018-07-10] MEDS: Gabapentin 300 MG CAPSULE PO SCH ×3 (10:07→22:51)
[2018-07-10] MEDS: hydroCHLOROthiazide 25 MG TABLET PO SCH (10:07)
[2018-07-10] MEDS: sulfaSALAzine 500 MG TABLET PO SCH ×2 (10:11→20:46)
[2018-07-10] MEDS: 0.9 % Sodium Chloride 1,000 ML IVC SCH (10:12)
[2018-07-10] MEDS: cefTRIAXone 2,000 MG in Water for inj. (sterile) 20 ML 20 ML IVP SCH (13:41)
[2018-07-10] MEDS: Famotidine 20 MG TABLET PO SCH (20:46)
[2018-07-10] MEDS: Ofloxacin *EAR* Drops 5 ML BOTTLE LEFT EAR SCH (20:47)
[2018-07-11] MEDS: 0.9 % Sodium Chloride 1,000 ML IVC SCH (04:13)
[2018-07-11 04:17] LABS: Basophils % 1.1 %; Eosinophils # 0.2 K/mcL (0.0-0.6); Eosinophils % 6.2 %; Hemoglobin 10.6 g/dL (11.5-15.4); Immature Granulocytes % 0.3 % (0-4); Lymphocytes # 0.7 K/mcL (0.6-4.6); Mean Corpuscular HGB Conc 33.1 g/dL (31.6-35.5); Mean Corpuscular Hemoglobin 35.7 pg (28.0-33.3); Mean Corpuscular Volume 107.7 fL (83.0-100.0); Mean Platelet Volume 10.2 fL (9.4-12.4); Monocytes # 0.4 K/mcL (0.0-1.3); Monocytes % 11.8 %; Neutrophils # 2.3 K/mcL (1.6-8.9); Platelet Count 162 K/mcL (140-400); Red Blood Count 2.97 M/mcL (3.82-4.97); Red Cell Distribution Width 12.9 % (11.5-14.5); Segmented Neutrophils % 62.6 %
[2018-07-11 04:37] LABS: Calcium 8.8 mg/dL (8.6-10.3); Potassium 4.1 mEq/L (3.5-5.1)
[2018-07-11] MEDS: *HR* Heparin 5,000 UNIT/ML VIAL SQ SCH (05:07)
--- NOTE | 2018-07-11 08:13 | Discharge Summary ---
Orders not resulted at time of discharge: Pending orders 07/12/18 04:00 Basic Metabolic Panel AM 0400 Complete Blood Count [HEME] AM 0400 07/13/18 04:00 Basic Metabolic Panel AM 0400 Complete Blood Count [HEME] AM 0400 Date of Encounter: 07/11/18 Time of Encounter: 08:11 - Discharge Diagnosis (1) Encephalopathy Priority: Primary Status: Acute Assessment and Plan: Encephalopathy 2/2 UTI; treated with 4 doses rocephin mental status has improved and returned to baseline there is also Possibly a psychogenic component as her daughter and sisters are reporting a worsened mental status since the of her She is also noted to have a recent increase in gabapentin dose which could also be contributing; mental status improved with treatment of UTI and decrease in gabapentin dose (2) UTI (urinary tract infection) Priority: Secondary Status: Acute Qualifiers: Urinary tract infection type: site unspecified Hematuria presence: without hematuria Qualified Code(s): N39.0 - Urinary tract infection, site not specified (3) Dehydration Priority: Secondary Status: Acute (4) Chronic kidney disease Priority: Secondary Status: Acute Qualifiers: Chronic kidney disease stage: stage 3 (moderate) Qualified Code(s): N18.3 - Chronic kidney disease, stage 3 (moderate) (5) Hypertension Priority: Secondary Status: Acute Qualifiers: Hypertension type: essential hypertension Qualified Code(s): I10 - Essential (primary) hypertension (6) Hyperlipidemia Priority: Secondary Status: Acute Qualifiers: Hyperlipidemia type: pure hypercholesterolemia Qualified Code(s): E78.00 - Pure hypercholesterolemia, unspecified; E78.0 - Pure hypercholesterolemia (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 Mendoza is a 73 year old female who presented with altered mental status secondary to UTI. Mental status alterations also thought to be caused by polypharmacy with high-dose of gabapentin. UTI was treated and patient's mental status improved. Gabapentin dose decreased as well. Patient had intermittent episodes of hypertensive throughout the stay requiring the addition of Norvasc to home medication regimen. With the addition of Norvasc to anti-HTN medication blood pressure improved. Please discuss BP meds at f/u. Also discuss decreased dose of gabapentin at f/u. Discharge discussed with: patient, family, nurse - Time Spent with Patient Total time spent providing and/or coordinating discharge services: Less than 30 minutes - Discharge Medications Prescriptions: amLODIPine [Norvasc] 5 mg PO DAILY 30 Days #30 tablet Home Medications: Albuterol Sulfate [Ventolin Hfa] 2 puff IH Q4H PRN 07/08/18 [History] Aspirin [Lo-Dose Aspirin EC] 81 mg PO DAILY 07/08/18 [History] Calcium Citrate/Vitamin D3 [Calcium Citrate with D Tablet] 1 each PO DAILY 07/08 [History] Cetirizine HCl [24Hour Allergy] 10 mg PO DAILY 07/08/18 [History] Cholecalciferol (D-3) [Vitamin D] 2,000 unit PO DAILY 07/08/18 [History] Citalopram Hydrobromide [Celexa] 40 mg PO DAILY 07/08/18 [History] Folic Acid 1 mg PO DAILY 07/08/18 [History] Gabapentin [Neurontin] 1,200 mg PO BID 07/08/18 [History] Hydrochlorothiazide [Microzide] 25 mg PO DAILY 07/08/18 [History] Leucovorin Calcium [Wellcovorin] 5 mg PO QWEEK 07/08/18 [History] Losartan Potassium [Cozaar] 100 mg PO DAILY 07/08/18 [History] Methotrexate [Otrexup] 17.5 mg PO DEL CID 07/08/18 [History] Multivit-Min/Iron/Folic Acid/K [Adults Multivitamin Caplet] 1 tab PO DAILY 07/08 [History] Ofloxacin *EAR* Drops [Floxin] 10 drop LEFT EAR HS MDD FOR 7 DAYS 07/08/18 [ History] PredniSONE [Madhu] 5 mg PO BID PRN 07/08/18 [History] Ranitidine HCl [Acid Assembly Line Inspector] 150 mg PO HS 07/08/18 [History] Ropinirole HCl [Requip] 5 mg PO HS 07/08/18 [History] Sulfasalazine [Azulfidine] 500 mg PO BID 07/08/18 [History] Tocilizumab [Actemra] mg IV Q4W 07/08/18 [History] Tramadol HCl [Ultram] 50 - 100 mg PO Q6H PRN 07/08/18 [History] Zolpidem [Ambien] 5 mg PO HS 07/08/18 [History] hydrOXYzine HCl [Hydroxyzine HCl] 25 mg PO HS PRN 07/08/18 [History] rOPINIRole [Requip] 2 mg PO DAILY 07/08/18 [History] amLODIPine [Norvasc] 5 mg PO DAILY 30 Days #30 tablet 07/11/18 [Rx] Allergies/Adverse Reactions: 3 Allergy/AdvReac Type Severity Reaction Status Date / Time acetaminophen AdvReac Nausea Verified 07/08/18 09:10 [From Tylenol-Codeine #3] Amoxicillin AdvReac Vomiting Verified 07/08/18 09:10 codeine AdvReac Nausea Verified 07/08/18 09:10 [From Tylenol-Codeine #3] levofloxacin [From Levaquin] AdvReac Vomiting Verified 07/08/18 09:10 Date of admission: 07/08/18 10:53 Primary care physician: Zaida Reyes Consults: 07/08/18 12:01 Consult to Budget Technician [CONS] Routine Reason for SW Consult: Home situation, lives alone 07/09/18 11:53 Consult to Physical Therapy [CONS] Routine Comment: Evaluate, develop and implement POC Reason for Consult: weakness Does patient have active BEDREST order?: No Is patient medically & hemodynamically stable?: Yes Patient assessed for mobility or mobilized this visit?: No Discharging clinician: Lebron Steel Anticipated date of discharge: 07/11/18 - Constitutional Vitals: Temp Pulse Resp BP Pulse Ox 97.9 F 71 16 197/83 98 07/11/18 07:33 07/11/18 07:33 07/11/18 07:33 07/11/18 07:33 07/11/18 07:33 Exam: . - Head Head exam: Present: atraumatic, normocephalic - Eye Eye exam: Present: PERRL, conjuntiva pink, sclera anicteric Pupils: Present: PERRL - Neck Neck exam general surgery: Present: supple, trachea midline. Absent: lymphadenopathy - Respiratory Respiratory exam: Present: CTAB. Absent: accessory muscle use, rales, rhonchi, wheezes - Cardiovascular Cardiovascular exam: Present: RRR, +S1, +S2. Absent: diastolic murmur, gallop, rubs, systolic murmur - GI/Abdominal GI/Abdominal exam: Present: normal bowel sounds, soft, no peritoneal signs. Absent: distended, tenderness - Extremities Exam Extremities exam: Present: warm, radial pulses palpable and symmetrical. Absent : calf tenderness, cyanotic, pedal edema - Neurological Exam Neurological exam: Present: CN II-XII intact, oriented X3, no focal deficits. Absent: pronater drift, facial droop, speech deficit - Skin Skin exam: Present: dry, intact - Patient Status Disposition: Home, Self-Care Condition: Fair Functional capacity at discharge: independent ambulation Overall status at discharge: patient is progressing back to baseline - Discharge Instructions Instructions: Amlodipine (By mouth), Asthma (DC), Urinary Tract Infection in Women (DC), Peripheral Vascular Disorders (DC) Follow Up With: Zaida Reyes MD [Primary Care Provider] - 07/18/18 10:45 am - Diet and Activity Activity: increase activity as tolerated, resume usual activities as tolerated Diet: advance to your usual diet
[2018-07-11] MEDS ORDERED: amLODIPine 5 MG TABLET PO SCH (09:00)
[2018-07-11] MEDS: Aspirin Enteric Coated 81 MG Tablet PO SCH (09:35)
[2018-07-11] MEDS: Gabapentin 300 MG CAPSULE PO SCH (09:35)
[2018-07-11] MEDS: Folic Acid 1 MG TABLET PO SCH (09:36)
[2018-07-11] MEDS: hydroCHLOROthiazide 25 MG TABLET PO SCH (09:36)
[2018-07-11] MEDS: sulfaSALAzine 500 MG TABLET PO SCH (09:37)
[2018-07-11 13:28] VITALS: BP 135/72
[2018-07-11] MEDS: cefTRIAXone 2,000 MG in Water for inj. (sterile) 20 ML 20 ML IVP SCH (13:33)
[2018-07-11] MEDS: Ibuprofen 400 MG TABLET PO PRN (13:33)
--- NOTE | 2018-07-11 21:54 | Electrocardiograph Report ---
[address] [address] Test Date: 2018-07-08 Pat Name: Lorna Mendoza Department: [id number] Room: 3B12 Gender: F Rails Developer: : 1945 Requested By: Mallory Jackson Order Number: [id number] Reading MD: Kayley Cook Measurements Intervals [place] Rate: 82 P: 59 TX: 172 QRS: 162 QRSD: 74 T: 167 QT: 366 QTc: 428 Interpretive Statements Limb leads reversal Sinus rhythm Poor R wave progression Low voltage in precoradial leads Electronically Signed On 07-11-2018 21:53:17 EDT by Kayley Cook
--- NOTE | 2018-07-11 21:55 | Electrocardiograph Report ---
[address] [place], [place] [address] Test Date: 2018-07-08 Pat Name: Lorna Mendoza Department: [id number] Room: 3B12 Gender: F Electroplating Worker: : 1945 Requested By: Roland Cueto Order Number: [id number] Reading MD: Kayley Cook Measurements Intervals [place] Rate: 92 P: 49 GA: 176 QRS: 12 QRSD: 83 T: 18 QT: 369 QTc: 457 Interpretive Statements Sinus rhythm Low voltage, precordial leads Poor R wave progression Electronically Signed On 07-11-2018 21:54:10 EDT by Kayley Cook
== END 2018-07-11 14:12 | disposition home or self-care (01) ==
LOC: EMEROOARM 04:02 → 3BNU 04:02
PROVIDERS: ADMIT Student in an Organized Health Care Education/Training Program; ATTEND Student in an Organized Health Care Education/Training Program

== ENCOUNTER 2019-08-19 11:48 | Observation (INO) ==
[2019-08-19] MEDS ORDERED: Ondansetron 4 MG/2 ML VIAL IVP ONE ×2 (12:33→14:40)
[2019-08-19] MEDS ORDERED: Isovue-370 500 ML BOTTLE IVP ONE (12:33)
[2019-08-19] MEDS ORDERED: *HR* FentaNYL (PF) 100 MCG/2 ML VIAL IVP ONE ×2 (12:33→14:40)
[2019-08-19 13:19] LABS: Basophils # 0.1 K/mcL (0.0-0.2); Basophils % 0.4 %; Eosinophils # 0.1 K/mcL (0.0-0.6); Eosinophils % 0.6 %; Hematocrit 37.3 % (35.3-44.9); Immature Granulocytes % 0.9 % (0-4); Lymphocytes # 0.8 K/mcL (0.6-4.6); Lymphocytes % 6.3 %; Mean Corpuscular HGB Conc 34.9 g/dL (31.6-35.5); Mean Corpuscular Hemoglobin 34.5 pg (28.0-33.3); Mean Corpuscular Volume 98.9 fL (83.0-100.0); Monocytes % 7.6 %; Neutrophils # 10.5 K/mcL (1.6-8.9); Platelet Count 220 K/mcL (140-400); Red Blood Count 3.77 M/mcL (3.82-4.97); Red Cell Distribution Width 11.6 % (11.5-14.5); Segmented Neutrophils % 84.2 %; White Blood Count 12.4 K/mcL (4.3-11.1)
[2019-08-19 13:42] LABS: Alanine Aminotransferase 40 Units/L (7-52); Albumin/Globulin Ratio 1.2 (1.1-2.2); Alkaline Phosphatase 83 Units/L (34-104); Aspartate Amino Transferase 23 Units/L (13-39); BUN/Creatinine Ratio 15 (6-26); Bilirubin,Total 0.4 mg/dL (0.3-1.0); Blood Urea Nitrogen 16 mg/dL (8-23); Calcium 9.3 mg/dL (8.6-10.3); Carbon Dioxide 22 mEq/L (23-29); Chloride 95 mEq/L (98-107); Globulin 3.4 g/dL (2.4-3.5); Glucose 84 mg/dL (70-105); Lipase 13 Units/L (11-82); Osmolality,Calculated 268 (280-300); Sodium 129 mEq/L (136-145); Total Protein 7.4 g/dL (6.4-8.9); eGFR For African Americans > 60 (> 60); eGFR For Non-African Americans 50 (> 60)
[2019-08-19 13:52] LABS: Bilirubin,Urine Small (Negative); Blood,Urine Negative (Negative); Clarity,Urine Clear (Clear); Color,Urine Yellow (Yellow); Glucose,Urine (UA) Normal (Normal); Ketones,Urine 15 mg/dL (Negative); Leukocyte Esterase,Urine Trace (Negative); Nitrite,Urine Negative (Negative); Protein,Urine 30 mg/dL (Neg-Trace); Specific Gravity,Urine 1.027 (1.010-1.025); Urobilinogen,Urine Normal (Normal)
[2019-08-19] MEDS ORDERED: 0.9 % Sodium Chloride 1,000 ML IVC ONE (14:01)
[2019-08-19 14:17] LABS: RBC,Urine 0-3 per hpf (0-3); Squamous Epithelial Cell,Urine Few per lpf (None-Few); WBC,Urine 0-3 per hpf (0-3)
[2019-08-19] MEDS ORDERED: Pantoprazole 40 MG VIAL IVP ONE (15:38)
[2019-08-19] MEDS ORDERED: Piperacillin/Tazobactam 3.375 GM in 0.9 % Sodium Chloride Mini Bag 100 ML IVPB ONE (15:38)
[2019-08-19] MEDS ORDERED: Ondansetron 4 MG/2 ML VIAL IVP PRN (17:04)
[2019-08-19] MEDS ORDERED: Naloxone 0.4 MG/ML INJ IVP PRN (17:04)
[2019-08-19] MEDS ORDERED: *HR* Promethazine 25 MG/ML VIAL IVP PRN (17:04)
[2019-08-19] MEDS ORDERED: *HR* FentaNYL (PF) 100 MCG/2 ML VIAL IVP PRN (17:06)
[2019-08-19] MEDS ORDERED: 0.9 % Sodium Chloride 1,000 ML IVC SCH (17:15)
[2019-08-19] MEDS ORDERED: *HR* HYDROcodone/Acet 5/325 mg TABLET PO PRN (19:13)
[2019-08-19] MEDS ORDERED: Loratadine 10 MG TABLET PO PRN (19:13)
[2019-08-19] MEDS: Famotidine 20 MG TABLET PO SCH (20:58)
[2019-08-19] MEDS: *HR* Heparin 5,000 UNIT/ML VIAL SQ SCH (20:58)
[2019-08-19] MEDS ORDERED: hydrOXYzine pamoate 25 MG CAPSULE PO PRN (21:35)
[2019-08-19] MEDS: amLODIPine 5 MG TABLET PO SCH (21:42)
[2019-08-19] MEDS: Gabapentin 300 MG CAPSULE PO SCH (21:42)
[2019-08-19] MEDS: rOPINIRole 1 MG TABLET PO SCH (21:43)
[2019-08-20 04:29] LABS: Basophils % 0.2 %; Eosinophils # 0.1 K/mcL (0.0-0.6); Eosinophils % 1.5 %; Hematocrit 32.7 % (35.3-44.9); Hemoglobin 11.5 g/dL (11.5-15.4); Immature Granulocytes % 0.8 % (0-4); Lymphocytes # 0.8 K/mcL (0.6-4.6); Lymphocytes % 8.2 %; Mean Corpuscular HGB Conc 35.2 g/dL (31.6-35.5); Mean Corpuscular Hemoglobin 34.7 pg (28.0-33.3); Mean Corpuscular Volume 98.8 fL (83.0-100.0); Mean Platelet Volume 9.8 fL (9.4-12.4); Monocytes # 0.9 K/mcL (0.0-1.3); Monocytes % 9.7 %; Neutrophils # 7.3 K/mcL (1.6-8.9); Platelet Count 239 K/mcL (140-400); Red Blood Count 3.31 M/mcL (3.82-4.97); Red Cell Distribution Width 11.5 % (11.5-14.5); Segmented Neutrophils % 79.6 %; White Blood Count 9.1 K/mcL (4.3-11.1)
[2019-08-20 04:46] LABS: BUN/Creatinine Ratio 13 (6-26); Blood Urea Nitrogen 13 mg/dL (8-23); Calcium 8.5 mg/dL (8.6-10.3); Carbon Dioxide 24 mEq/L (23-29); Chloride 99 mEq/L (98-107); Glucose 85 mg/dL (70-105); Osmolality,Calculated 269 (280-300); Sodium 130 mEq/L (136-145); eGFR For African Americans > 60 (> 60); eGFR For Non-African Americans 56 (> 60)
[2019-08-20] MEDS: *HR* Heparin 5,000 UNIT/ML VIAL SQ SCH ×3 (05:16→21:00)
[2019-08-20] MEDS: Gabapentin 300 MG CAPSULE PO SCH ×2 (09:18→20:53)
[2019-08-20] MEDS: rOPINIRole 1 MG TABLET PO SCH ×2 (09:18→20:53)
[2019-08-20] MEDS: amLODIPine 5 MG TABLET PO SCH (09:19)
[2019-08-20] MEDS: Cholecalciferol (D-3) 1,000 UNIT (25MCG) TABLET PO SCH (09:19)
[2019-08-20] MEDS: Folic Acid 1 MG TABLET PO SCH (09:19)
[2019-08-20] MEDS: Furosemide 20 MG TABLET PO SCH (09:19)
[2019-08-20] MEDS: Famotidine 20 MG TABLET PO SCH (09:19)
[2019-08-20] MEDS: Pantoprazole 40 MG VIAL IVP SCH (09:20)
[2019-08-20 14:57] LABS: BUN/Creatinine Ratio 14 (6-26); Blood Urea Nitrogen 14 mg/dL (8-23); Calcium 8.8 mg/dL (8.6-10.3); Carbon Dioxide 22 mEq/L (23-29); Chloride 98 mEq/L (98-107); Glucose 136 mg/dL (70-105); Osmolality,Calculated 271 (280-300); Potassium 3.5 mEq/L (3.5-5.1); Sodium 129 mEq/L (136-145); eGFR For African Americans > 60 (> 60); eGFR For Non-African Americans 52 (> 60)
[2019-08-20] MEDS: 0.9 % Sodium Chloride 1,000 ML IVC SCH (18:10)
[2019-08-21] MEDS: *HR* Heparin 5,000 UNIT/ML VIAL SQ SCH (05:26)
[2019-08-21] MEDS: 0.9 % Sodium Chloride 1,000 ML IVC SCH (06:24)
[2019-08-21 06:33] LABS: Basophils % 0.3 %; Eosinophils # 0.2 K/mcL (0.0-0.6); Eosinophils % 2.1 %; Hematocrit 32.6 % (35.3-44.9); Hemoglobin 11.3 g/dL (11.5-15.4); Immature Granulocytes % 0.7 % (0-4); Lymphocytes % 11.4 %; Mean Corpuscular HGB Conc 34.7 g/dL (31.6-35.5); Mean Corpuscular Hemoglobin 34.8 pg (28.0-33.3); Mean Corpuscular Volume 100.3 fL (83.0-100.0); Mean Platelet Volume 9.9 fL (9.4-12.4); Monocytes # 0.9 K/mcL (0.0-1.3); Monocytes % 10.5 %; Neutrophils # 6.6 K/mcL (1.6-8.9); Platelet Count 241 K/mcL (140-400); Red Blood Count 3.25 M/mcL (3.82-4.97); Red Cell Distribution Width 11.5 % (11.5-14.5); White Blood Count 8.8 K/mcL (4.3-11.1)
[2019-08-21 06:49] VITALS: BP 160/79
[2019-08-21 07:00] LABS: BUN/Creatinine Ratio 15 (6-26); Blood Urea Nitrogen 16 mg/dL (8-23); Calcium 8.2 mg/dL (8.6-10.3); Carbon Dioxide 23 mEq/L (23-29); Chloride 101 mEq/L (98-107); Glucose 102 mg/dL (70-105); Osmolality,Calculated 275 (280-300); Potassium 3.7 mEq/L (3.5-5.1); Sodium 132 mEq/L (136-145); eGFR For African Americans > 60 (> 60); eGFR For Non-African Americans 51 (> 60)
[2019-08-21] MEDS: amLODIPine 5 MG TABLET PO SCH (07:45)
[2019-08-21] MEDS: Cholecalciferol (D-3) 1,000 UNIT (25MCG) TABLET PO SCH (07:45)
[2019-08-21] MEDS: Gabapentin 300 MG CAPSULE PO SCH (07:45)
[2019-08-21] MEDS: Folic Acid 1 MG TABLET PO SCH (07:45)
[2019-08-21] MEDS: Furosemide 20 MG TABLET PO SCH (07:46)
[2019-08-21] MEDS: Pantoprazole 40 MG VIAL IVP SCH (07:46)
[2019-08-21] MEDS: rOPINIRole 1 MG TABLET PO SCH (07:46)
[2019-08-21] MEDS ORDERED: Famotidine 20 MG TABLET PO SCH (09:00)
[2019-08-25] MEDS ORDERED: *HR* Methotrexate 2.5 MG TABLET PO SCH (19:13)
== END 2019-08-21 11:24 | disposition home or self-care (01) ==
LOC: 3ANU 11:48 → EMEROOARM 11:48 → SUATTDRO 16:32 → 3ANU 16:45
PROVIDERS: ADMIT Internal Medicine; ATTEND Internal Medicine

== ENCOUNTER 2019-11-16 20:57 | Observation (INO) ==
[2019-11-16] MEDS ORDERED: 0.9 % Sodium Chloride 1,000 ML IVC ONE (21:32)
[2019-11-16 21:46] LABS: Basophils # 0.1 K/mcL (0.0-0.2); Basophils % 0.6 %; Eosinophils # 0.3 K/mcL (0.0-0.6); Eosinophils % 1.9 %; Hematocrit 43.9 % (35.3-44.9); Immature Granulocytes % 0.5 % (0-4); Lymphocytes # 1.4 K/mcL (0.6-4.6); Lymphocytes % 8.6 %; Mean Corpuscular HGB Conc 34.2 g/dL (31.6-35.5); Mean Corpuscular Volume 96.5 fL (83.0-100.0); Monocytes # 1.4 K/mcL (0.0-1.3); Monocytes % 8.6 %; Neutrophils # 13.1 K/mcL (1.6-8.9); Platelet Count 248 K/mcL (140-400); Red Blood Count 4.55 M/mcL (3.82-4.97); Red Cell Distribution Width 13.1 % (11.5-14.5); Segmented Neutrophils % 79.8 %; White Blood Count 16.5 K/mcL (4.3-11.1)
[2019-11-16 21:51] LABS: Prothrombin Time 11.4 Seconds (9.4-12.1)
[2019-11-16 21:54] LABS: Activated Partial Thrombo Time 33.6 Seconds (26.0-36.0)
[2019-11-16 22:08] LABS: Alanine Aminotransferase 20 Units/L (7-52); Albumin 4.7 g/dL (3.5-5.7); Albumin/Globulin Ratio 1.2 (1.1-2.2); Alkaline Phosphatase 102 Units/L (34-104); Aspartate Amino Transferase 25 Units/L (13-39); BUN/Creatinine Ratio 11 (6-26); Bilirubin,Direct 0.1 mg/dL (0.0-0.2); Bilirubin,Indirect 0.5 mg/dL (0.0-1.0); Bilirubin,Total 0.6 mg/dL (0.3-1.0); Blood Urea Nitrogen 16 mg/dL (8-23); Calcium 10.2 mg/dL (8.6-10.3); Carbon Dioxide 26 mEq/L (23-29); Chloride 95 mEq/L (98-107); Glucose 91 mg/dL (70-105); Magnesium 1.7 mg/dL (1.6-2.6); Osmolality,Calculated 279 (280-300); Potassium 3.5 mEq/L (3.5-5.1); Sodium 134 mEq/L (136-145); Total Protein 8.7 g/dL (6.4-8.9); Troponin I < 0.03 ng/mL (< 0.04); eGFR For African Americans 45 (> 60); eGFR For Non-African Americans 37 (> 60)
[2019-11-16 22:37] LABS: Bilirubin,Urine Negative (Negative); Blood,Urine Negative (Negative); Clarity,Urine Clear (Clear); Color,Urine Yellow (Yellow); Glucose,Urine (UA) Normal (Normal); Ketones,Urine Negative (Negative); Leukocyte Esterase,Urine Moderate (Negative); Nitrite,Urine Negative (Negative); PH,Urine 7.5 pH Units (5.0-8.0); Protein,Urine Negative (Neg-Trace); Specific Gravity,Urine 1.016 (1.010-1.025); Urobilinogen,Urine Normal (Normal)
[2019-11-16 22:39] LABS: Bacteria,Urine None Seen per hpf (None-Few); Hyaline Casts,Urine None Seen per lpf (None-Few); RBC,Urine 0-3 per hpf (0-3); Squamous Epithelial Cell,Urine Many per lpf (None-Few)
[2019-11-16 22:50] LABS: ABG Base Excess 3 mEq/L (-2 to 3); ABG HCO3 26 mEq/L (21-27); ABG Oxygen Saturation 92 % (95-98); ABG PCO2 37 mmHg (35-45); ABG PH 7.46 pH Units (7.32-7.45); ABG PO2 60 mmHg (85-104); ABG TCO2 27 mEq/L (20-26)
[2019-11-16] MEDS ORDERED: Isovue-370 500 ML BOTTLE IVP ONE (23:13)
[2019-11-16] MEDS ORDERED: cefTRIAXone 1,000 MG in 0.9 % Sodium Chloride Mini Bag 100 ML IVPB ONE (23:22)
[2019-11-17] MEDS ORDERED: hydrOXYzine pamoate 25 MG CAPSULE PO ONE (05:50)
[2019-11-17] MEDS: 0.9 % Sodium Chloride 1,000 ML IVC SCH ×2 (06:09→19:02)
[2019-11-17] MEDS ORDERED: Naloxone 0.4 MG/ML INJ IVP PRN (08:19)
[2019-11-17] MEDS ORDERED: Ondansetron ODT 4 MG TAB.RAPDIS SL PRN (08:19)
[2019-11-17] MEDS ORDERED: Acetaminophen 325 MG TABLET PO PRN (08:19)
[2019-11-17] MEDS: rOPINIRole 1 MG TABLET PO SCH ×2 (08:50→22:48)
[2019-11-17] MEDS: amLODIPine 5 MG TABLET PO SCH (08:50)
[2019-11-17] MEDS: Folic Acid 1 MG TABLET PO SCH (08:50)
[2019-11-17] MEDS: Cholecalciferol (D-3) 1,000 UNIT (25MCG) TABLET PO SCH (08:51)
[2019-11-17] MEDS: Multivit/Ca/Min/Fe/FA 1 TAB TABLET PO SCH (08:51)
[2019-11-17] MEDS ORDERED: CALCIUM CITRATE PO SCH (09:00)
[2019-11-17] MEDS ORDERED: [UNRECOGNIZED DRUG - OTHER] PO SCH (09:00)
[2019-11-17] MEDS ORDERED: VITAMIN D3 PO SCH (09:00)
[2019-11-17 11:08] LABS: Basophils # 0.1 K/mcL (0.0-0.2); Basophils % 0.4 %; Eosinophils # 0.2 K/mcL (0.0-0.6); Eosinophils % 0.8 %; Hematocrit 33.9 % (35.3-44.9); Immature Granulocytes % 0.5 % (0-4); Lymphocytes # 1.6 K/mcL (0.6-4.6); Lymphocytes % 8.9 %; Mean Corpuscular HGB Conc 33.6 g/dL (31.6-35.5); Mean Corpuscular Hemoglobin 32.8 pg (28.0-33.3); Mean Corpuscular Volume 97.4 fL (83.0-100.0); Mean Platelet Volume 10.8 fL (9.4-12.4); Monocytes # 2.2 K/mcL (0.0-1.3); Neutrophils # 14.3 K/mcL (1.6-8.9); Platelet Count 177 K/mcL (140-400); Red Blood Count 3.48 M/mcL (3.82-4.97); Red Cell Distribution Width 13.2 % (11.5-14.5); Segmented Neutrophils % 77.4 %; White Blood Count 18.5 K/mcL (4.3-11.1)
[2019-11-17 11:22] LABS: Hemoglobin 11.4 g/dL (11.5-15.4)
[2019-11-17 11:24] LABS: Calcium 8.7 mg/dL (8.6-10.3); Magnesium 1.6 mg/dL (1.6-2.6); Potassium 3.3 mEq/L (3.5-5.1)
[2019-11-17 11:25] LABS: Troponin I 0.03 ng/mL (< 0.04)
[2019-11-17] MEDS ORDERED: 0.9 % Sodium Chloride 500 ML IVC ONE (12:02)
[2019-11-17] MEDS: *HR* HYDROcodone/Acet 5/325 mg TABLET PO PRN ×2 (14:03→22:56)
[2019-11-17] MEDS ORDERED: hydrOXYzine pamoate 25 MG CAPSULE PO PRN (21:00)
[2019-11-17] MEDS ORDERED: cefTRIAXone 1,000 MG in 0.9 % Sodium Chloride Mini Bag 100 ML IVPB SCH (23:00)
[2019-11-18 07:35] LABS: Basophils # 0.1 K/mcL (0.0-0.2); Basophils % 0.7 %; Eosinophils # 0.4 K/mcL (0.0-0.6); Eosinophils % 3.9 %; Hematocrit 35.9 % (35.3-44.9); Hemoglobin 11.4 g/dL (11.5-15.4); Immature Granulocytes % 0.4 % (0-4); Lymphocytes # 1.1 K/mcL (0.6-4.6); Lymphocytes % 9.9 %; Mean Corpuscular HGB Conc 31.8 g/dL (31.6-35.5); Mean Corpuscular Hemoglobin 32.5 pg (28.0-33.3); Mean Corpuscular Volume 102.3 fL (83.0-100.0); Mean Platelet Volume 11.3 fL (9.4-12.4); Monocytes # 1.1 K/mcL (0.0-1.3); Monocytes % 10.2 %; Neutrophils # 8.2 K/mcL (1.6-8.9); Platelet Count 192 K/mcL (140-400); Red Blood Count 3.51 M/mcL (3.82-4.97); Red Cell Distribution Width 13.2 % (11.5-14.5); Segmented Neutrophils % 74.9 %
[2019-11-18 07:53] LABS: BUN/Creatinine Ratio 14 (6-26); Blood Urea Nitrogen 15 mg/dL (8-23); Calcium 8.8 mg/dL (8.6-10.3); Carbon Dioxide 25 mEq/L (23-29); Chloride 106 mEq/L (98-107); Glucose 101 mg/dL (70-105); Magnesium 2.2 mg/dL (1.6-2.6); Osmolality,Calculated 291 (280-300); Phosphorous 3.2 mg/dL (2.7-4.5); Potassium 3.9 mEq/L (3.5-5.1); Sodium 140 mEq/L (136-145); eGFR For African Americans > 60 (> 60); eGFR For Non-African Americans 51 (> 60)
[2019-11-18] MEDS: 0.9 % Sodium Chloride 1,000 ML IVC SCH (08:04)
[2019-11-18] MEDS: cefTRIAXone 1,000 MG in 0.9 % Sodium Chloride Mini Bag 100 ML IVPB SCH (08:05)
[2019-11-18] MEDS: amLODIPine 5 MG TABLET PO SCH (08:05)
[2019-11-18] MEDS: Folic Acid 1 MG TABLET PO SCH (08:05)
[2019-11-18] MEDS: Multivit/Ca/Min/Fe/FA 1 TAB TABLET PO SCH (08:05)
[2019-11-18] MEDS: Cholecalciferol (D-3) 1,000 UNIT (25MCG) TABLET PO SCH (08:05)
[2019-11-18] MEDS: rOPINIRole 1 MG TABLET PO SCH ×2 (08:06→21:00)
[2019-11-18] MEDS ORDERED: *HR* HYDROcodone/Acet 5/325 mg TABLET PO PRN (10:45)
[2019-11-18] MEDS: Furosemide 20 MG TABLET PO SCH (20:57)
[2019-11-19 06:18] LABS: Basophils # 0.1 K/mcL (0.0-0.2); Eosinophils # 0.4 K/mcL (0.0-0.6); Eosinophils % 6.1 %; Hematocrit 36.6 % (35.3-44.9); Immature Granulocytes % 0.6 % (0-4); Lymphocytes # 1.1 K/mcL (0.6-4.6); Lymphocytes % 14.7 %; Mean Corpuscular HGB Conc 32.8 g/dL (31.6-35.5); Mean Corpuscular Hemoglobin 32.7 pg (28.0-33.3); Mean Corpuscular Volume 99.7 fL (83.0-100.0); Mean Platelet Volume 10.9 fL (9.4-12.4); Monocytes # 0.9 K/mcL (0.0-1.3); Monocytes % 11.8 %; Neutrophils # 4.7 K/mcL (1.6-8.9); Platelet Count 208 K/mcL (140-400); Red Blood Count 3.67 M/mcL (3.82-4.97); Red Cell Distribution Width 13.1 % (11.5-14.5); Segmented Neutrophils % 65.8 %; White Blood Count 7.2 K/mcL (4.3-11.1)
[2019-11-19 06:30] LABS: BUN/Creatinine Ratio 11 (6-26); Blood Urea Nitrogen 11 mg/dL (8-23); Calcium 9.2 mg/dL (8.6-10.3); Carbon Dioxide 24 mEq/L (23-29); Chloride 104 mEq/L (98-107); Glucose 98 mg/dL (70-105); Osmolality,Calculated 285 (280-300); Potassium 3.9 mEq/L (3.5-5.1); Sodium 138 mEq/L (136-145); eGFR For African Americans > 60 (> 60); eGFR For Non-African Americans 56 (> 60)
[2019-11-19 06:46] VITALS: BP 179/78
[2019-11-19] MEDS: Furosemide 20 MG TABLET PO SCH (07:36)
[2019-11-19] MEDS: Multivit/Ca/Min/Fe/FA 1 TAB TABLET PO SCH (07:36)
[2019-11-19] MEDS: rOPINIRole 1 MG TABLET PO SCH (07:36)
[2019-11-19] MEDS: Cholecalciferol (D-3) 1,000 UNIT (25MCG) TABLET PO SCH (07:36)
[2019-11-19] MEDS: Folic Acid 1 MG TABLET PO SCH (07:37)
[2019-11-19] MEDS: amLODIPine 5 MG TABLET PO SCH (07:37)
[2019-11-19] MEDS: cefTRIAXone 1,000 MG in 0.9 % Sodium Chloride Mini Bag 100 ML IVPB SCH (07:38)
== END 2019-11-19 09:27 | disposition home health service (06) ==
LOC: EMEROOARM 20:57 → CDU 20:57 → SUATTDRO 11-17 02:38 → CDU 11-17 03:37 → 2ANU 11-17 17:59
PROVIDERS: ADMIT Internal Medicine; ATTEND Internal Medicine

== ENCOUNTER 2020-09-17 06:17 | Observation (INO) ==
[2020-09-17] MEDS ORDERED: Vancomycin 1,250 MG/262.5 ML IV.SOLN IVPB ONE (06:40)
[2020-09-17] MEDS ORDERED: Vancomycin 1,000 MG, Sodium Chloride IRRigation 1,000 ML IR ONE ×3 (06:40→12:05)
[2020-09-17] MEDS ORDERED: CeFAZolin Syr 2,000MG/20 ML 2,000 MG/20 ML SYRINGE IVPB ONE (06:40)
[2020-09-17] MEDS ORDERED: Pregabalin 75 MG CAPSULE PO ONE (06:40)
[2020-09-17] MEDS ORDERED: Famotidine 20 MG/2 ML VIAL IVP ONE (06:40)
[2020-09-17] MEDS ORDERED: Ringers Solution, Lactated 1,000 ML IVC SCH (06:45)
[2020-09-17] MEDS ORDERED: *HR* Labetalol 20 MG/4 ML SYRINGE IVP PRN ×2 (06:47→12:14)
[2020-09-17] MEDS ORDERED: Promethazine Syrup 6.25 MG/5 ML PO PRN (06:47)
[2020-09-17] MEDS ORDERED: *HR* HYDROmorphone (PF) 1 MG/ML SYRINGE IVP PRN (06:47)
[2020-09-17] MEDS ORDERED: Ondansetron 4 MG/2 ML VIAL IVP PRN ×2 (06:47→12:14)
[2020-09-17] MEDS ORDERED: Lidocaine -MPF 2% 2 ML VIAL ONE (07:01)
[2020-09-17] MEDS ORDERED: Dexamethasone 4 MG/ML VIAL ONE (07:01)
[2020-09-17] MEDS ORDERED: *HR* Rocuronium Bromide 50 MG/5 ML VIAL ONE (07:01)
[2020-09-17] MEDS ORDERED: *HR* Succinylcholine 200 MG/10 ML VIAL IVP ONE (07:01)
[2020-09-17] MEDS ORDERED: Ondansetron 4 MG/2 ML VIAL ONE (07:01)
[2020-09-17] MEDS ORDERED: Lidocaine -MPF 4% 5 ML AMPUL ONE (07:03)
[2020-09-17] MEDS ORDERED: *HR* Propofol 200 MG/20 ML VIAL IVP ONE ×2 (07:04)
[2020-09-17] MEDS ORDERED: *HR* FentaNYL (PF) 100 MCG/2 ML VIAL ONE (07:04)
[2020-09-17] MEDS ORDERED: *HR* Remifentanil 2 MG VIAL IVP ONE (07:07)
[2020-09-17] MEDS ORDERED: Bupivacaine-MPF 0.25% 10 ML VIAL ONE (07:12)
[2020-09-17] MEDS ORDERED: Protamine Sulfate 50 MG/5 ML VIAL IVP ONE (07:12)
[2020-09-17] MEDS ORDERED: Heparin 1,000 UNITS/500 mL 1,000 ML ONE (07:12)
[2020-09-17] MEDS ORDERED: Heparin 1,000 UNITS/500 mL 0 ML ONE (07:30)
[2020-09-17] MEDS ORDERED: *HR* Heparin 5,000 UNIT/ML VIAL ONE (08:46)
[2020-09-17] MEDS ORDERED: *HR* OxyCODONE Immed Rel 5 MG TABLET PO PRN (12:14)
[2020-09-17] MEDS ORDERED: 0.9 % Sodium Chloride 1,000 ML IVC SCH (12:14)
[2020-09-17] MEDS ORDERED: Acetaminophen 325 MG TABLET PO PRN (12:14)
[2020-09-17] MEDS ORDERED: hydrOXYzine pamoate 25 MG CAPSULE PO PRN (12:14)
[2020-09-17] MEDS ORDERED: Sennosides/Docusate Sodium TABLET PO PRN (12:14)
[2020-09-17] MEDS ORDERED: Naloxone 0.4 MG/ML INJ IVP PRN (12:14)
[2020-09-17] MEDS: Pregabalin 75 MG CAPSULE PO SCH ×2 (13:59→21:17)
[2020-09-17] MEDS: *HR* Metoprolol 5 MG/5 ML VIAL IVP SCH ×2 (14:00→17:38)
[2020-09-17] MEDS ORDERED: CeFAZolin 2 GM/120 ML BAG IVPB SCH (14:00)
[2020-09-17] MEDS ORDERED: NON-FORMULARY MEDICATION 1 EACH EACH (Ipratropium Bromide 1 SPR) NS SCH (21:00)
[2020-09-17] MEDS ORDERED: rOPINIRole 1 MG TABLET PO SCH (21:00)
[2020-09-17] MEDS: CeFAZolin 2 GM/120 ML BAG IVPB SCH (21:19)
[2020-09-17] MEDS: Fluticasone Propionate Nasal 50 MCG/SPRAY BOTTLE NS SCH (21:37)
[2020-09-17] MEDS: Budesonide/Formoterol 160/4.5 1 PUFF INH IH SCH (22:17)
[2020-09-18] MEDS: *HR* Metoprolol 5 MG/5 ML VIAL IVP SCH ×2 (00:05→05:18)
[2020-09-18] MEDS: CeFAZolin 2 GM/120 ML BAG IVPB SCH (05:08)
[2020-09-18] MEDS: *HR* HYDROcodone/Acet 5/325 mg TABLET PO PRN ×2 (05:12→12:22)
[2020-09-18] MEDS ORDERED: *HR* Heparin 5,000 UNIT/ML VIAL SQ SCH ×2 (06:00)
[2020-09-18] MEDS: Pregabalin 75 MG CAPSULE PO SCH (08:02)
[2020-09-18] MEDS: Fluticasone Propionate Nasal 50 MCG/SPRAY BOTTLE NS SCH (08:07)
[2020-09-18] MEDS: Budesonide/Formoterol 160/4.5 1 PUFF INH IH SCH (08:14)
[2020-09-18] MEDS ORDERED: VITAMIN D3 PO SCH (09:00)
[2020-09-18] MEDS ORDERED: rOPINIRole 1 MG TABLET PO SCH (09:00)
[2020-09-18] MEDS ORDERED: Multivit/Ca/Min/Fe/FA 1 TAB TABLET PO SCH (09:00)
[2020-09-18] MEDS ORDERED: Furosemide 20 MG TABLET PO SCH (09:00)
[2020-09-18] MEDS ORDERED: CALCIUM CITRATE PO SCH (09:00)
[2020-09-18] MEDS ORDERED: [UNRECOGNIZED DRUG - OTHER] PO SCH (09:00)
[2020-09-18] MEDS ORDERED: Folic Acid 1 MG TABLET PO SCH (09:00)
[2020-09-18] MEDS ORDERED: Cholecalciferol (D-3) 1,000 UNIT (25MCG) TABLET PO SCH (09:00)
[2020-09-18 11:43] VITALS: BP 128/48
[2020-09-20] MEDS ORDERED: *HR* Methotrexate 2.5 MG TABLET PO SCH (10:50)
[2020-09-22] MEDS ORDERED: NON-FORMULARY MEDICATION 1 EACH EACH (Adalimumab [Humira] 40 MG) SQ SCH (10:50)
== END 2020-09-18 13:27 | disposition home or self-care (01) ==
LOC: SAMDAY 06:17 → INTOOBSV 12:09 → 2NNU 12:09
PROVIDERS: ADMIT Surgery; ATTEND Surgery

== ENCOUNTER 2021-08-19 14:22 | Inpatient (IN) ==
[2021-08-19 16:20] LABS: Basophils # 0.1 K/mcL (0.0-0.2); Eosinophils # 0.5 K/mcL (0.0-0.6); Eosinophils % 5.7 %; Hematocrit 34.9 % (35.3-44.9); Hemoglobin 12.4 g/dL (11.5-15.4); Immature Granulocytes % 0.2 % (0-4); Mean Corpuscular HGB Conc 35.5 g/dL (31.6-35.5); Mean Corpuscular Hemoglobin 33.6 pg (28.0-33.3); Mean Corpuscular Volume 94.6 fL (83.0-100.0); Mean Platelet Volume 10.3 fL (9.4-12.4); Monocytes % 10.4 %; Neutrophils # 5.6 K/mcL (1.6-8.9); Platelet Count 321 K/mcL (140-400); Red Blood Count 3.69 M/mcL (3.82-4.97); Red Cell Distribution Width 11.9 % (11.5-14.5); Segmented Neutrophils % 60.7 %; White Blood Count 9.2 K/mcL (4.3-11.1)
[2021-08-19 17:23] LABS: Bacteria,Urine Few per hpf (None-Few); Bilirubin,Urine Negative (Negative); Blood,Urine Small (Negative); Clarity,Urine Turbid (Clear); Color,Urine Light-Yellow (Yellow); Glucose,Urine (UA) Normal (Normal); Ketones,Urine Negative (Negative); Leukocyte Esterase,Urine Large (Negative); Mucus,Urine Few per lpf (None-Few); Nitrite,Urine Negative (Negative); PH,Urine 6.5 pH Units (5.0-8.0); Protein,Urine 30 mg/dL (Neg-Trace); RBC,Urine 15-30 per hpf (0-3); Renal Epithelial Cells,Urine Few per hpf (None-Few); Specific Gravity,Urine 1.009 (1.010-1.025); Transitional Epi Cells,Urine Few per hpf (None-Few); Urobilinogen,Urine Normal (Normal); WBC,Urine TNTC per hpf (0-3)
[2021-08-19 17:28] LABS: Alanine Aminotransferase 8 Units/L (7-52); Albumin 3.7 g/dL (3.5-5.7); Albumin/Globulin Ratio 1.3 (1.1-2.2); Alkaline Phosphatase 68 Units/L (34-104); Aspartate Amino Transferase 13 Units/L (13-39); BUN/Creatinine Ratio 18 (6-26); Bilirubin,Total 0.4 mg/dL (0.3-1.0); Blood Urea Nitrogen 21 mg/dL (8-23); Calcium 9.4 mg/dL (8.6-10.3); Carbon Dioxide 24 mEq/L (23-29); Chloride 97 mEq/L (98-107); Globulin 2.8 g/dL (2.4-3.5); Glucose 92 mg/dL (70-105); Osmolality,Calculated 269 (280-300); Potassium 4.4 mEq/L (3.5-5.1); Sodium 128 mEq/L (136-145); Total Protein 6.5 g/dL (6.4-8.9); Troponin I < 0.03 ng/mL (< 0.04); eGFR For African Americans 56 (> 60); eGFR For Non-African Americans 46 (> 60)
[2021-08-19 17:41] LABS: Thyroid Stimulating Hormone 1.693 mcIU/mL (0.340-5.600)
[2021-08-19] MEDS ORDERED: cefTRIAXone 1,000 MG in 0.9 % Sodium Chloride Mini Bag 100 ML IVPB ONE (18:06)
[2021-08-19] MEDS: 0.9 % Sodium Chloride 1,000 ML IVC SCH ×2 (18:31→23:41)
[2021-08-19] MEDS ORDERED: Ondansetron 4 MG/2 ML VIAL IVP PRN (21:24)
[2021-08-19] MEDS ORDERED: Naloxone 0.4 MG/ML INJ IVP PRN (21:24)
[2021-08-19 23:03] LABS: Calcium 8.8 mg/dL (8.6-10.3); Potassium 3.8 mEq/L (3.5-5.1)
[2021-08-19] MEDS ORDERED: NON-FORMULARY MEDICATION 1 EACH EACH (Ropinirole Hcl 5 MG Tablet) PO SCH (23:15)
[2021-08-19] MEDS ORDERED: rOPINIRole 2 MG, rOPINIRole 3 MG PO SCH (23:30)
[2021-08-19] MEDS: Melatonin 3 MG TABLET PO PRN (23:41)
[2021-08-20 03:15] LABS: Basophils # 0.1 K/mcL (0.0-0.2); Eosinophils # 0.6 K/mcL (0.0-0.6); Eosinophils % 6.9 %; Hematocrit 33.5 % (35.3-44.9); Hemoglobin 11.8 g/dL (11.5-15.4); Immature Granulocytes % 0.1 % (0-4); Lymphocytes # 2.2 K/mcL (0.6-4.6); Lymphocytes % 25.4 %; Mean Corpuscular HGB Conc 35.2 g/dL (31.6-35.5); Mean Corpuscular Hemoglobin 33.4 pg (28.0-33.3); Mean Corpuscular Volume 94.9 fL (83.0-100.0); Mean Platelet Volume 10.3 fL (9.4-12.4); Monocytes # 1.1 K/mcL (0.0-1.3); Monocytes % 12.4 %; Neutrophils # 4.7 K/mcL (1.6-8.9); Platelet Count 294 K/mcL (140-400); Red Blood Count 3.53 M/mcL (3.82-4.97); Red Cell Distribution Width 11.9 % (11.5-14.5); Segmented Neutrophils % 54.2 %; White Blood Count 8.7 K/mcL (4.3-11.1)
[2021-08-20 03:33] LABS: BUN/Creatinine Ratio 19 (6-26); Blood Urea Nitrogen 18 mg/dL (8-23); Calcium 8.8 mg/dL (8.6-10.3); Carbon Dioxide 22 mEq/L (23-29); Chloride 100 mEq/L (98-107); Glucose 101 mg/dL (70-105); Magnesium 1.6 mg/dL (1.6-2.6); Osmolality,Calculated 270 (280-300); Phosphorous 4.1 mg/dL (2.7-4.5); Potassium 4.1 mEq/L (3.5-5.1); Sodium 129 mEq/L (136-145); eGFR For African Americans > 60 (> 60); eGFR For Non-African Americans 57 (> 60)
[2021-08-20] MEDS: cefTRIAXone 1,000 MG in Water for inj. (sterile) 10 ML IVP SCH (08:46)
[2021-08-20] MEDS ORDERED: rOPINIRole 1 MG TABLET PO SCH (09:30)
[2021-08-20] MEDS: 0.9 % Sodium Chloride 1,000 ML IVC SCH ×2 (10:05→20:16)
[2021-08-20] MEDS ORDERED: rOPINIRole 1 MG TABLET PO STA (17:38)
[2021-08-20] MEDS ORDERED: Metoprolol XL (24 HR) Succ 50 MG TAB.ER.24H PO SCH (18:00)
[2021-08-20] MEDS: rOPINIRole 2 MG, rOPINIRole 3 MG PO SCH (20:17)
[2021-08-20] MEDS ORDERED: Budesonide/Formoterol 160/4.5 1 PUFF INH IH PRN (22:00)
[2021-08-21] MEDS: Levothyroxine 25 MCG TABLET PO SCH (05:22)
[2021-08-21 07:40] LABS: Hematocrit 34.9 % (35.3-44.9); Hemoglobin 12.1 g/dL (11.5-15.4); Mean Corpuscular HGB Conc 34.7 g/dL (31.6-35.5); Mean Corpuscular Hemoglobin 32.9 pg (28.0-33.3); Mean Corpuscular Volume 94.8 fL (83.0-100.0); Mean Platelet Volume 10.7 fL (9.4-12.4); Platelet Count 311 K/mcL (140-400); Red Blood Count 3.68 M/mcL (3.82-4.97); White Blood Count 8.6 K/mcL (4.3-11.1)
[2021-08-21 08:05] LABS: BUN/Creatinine Ratio 14 (6-26); Blood Urea Nitrogen 14 mg/dL (8-23); Calcium 9.1 mg/dL (8.6-10.3); Carbon Dioxide 23 mEq/L (23-29); Chloride 102 mEq/L (98-107); Glucose 83 mg/dL (70-105); Osmolality,Calculated 274 (280-300); Potassium 3.9 mEq/L (3.5-5.1); Sodium 132 mEq/L (136-145); eGFR For African Americans > 60 (> 60); eGFR For Non-African Americans 55 (> 60)
[2021-08-21] MEDS: Aspirin Enteric Coated 81 MG Tablet PO SCH (08:45)
[2021-08-21] MEDS: cefTRIAXone 1,000 MG in Water for inj. (sterile) 10 ML IVP SCH (08:45)
[2021-08-21] MEDS ORDERED: amLODIPine 5 MG TABLET PO SCH (09:00)
[2021-08-21] MEDS: amLODIPine 5 MG TABLET PO SCH (11:06)
[2021-08-21] MEDS: rOPINIRole 1 MG TABLET PO SCH ×2 (11:07→17:39)
[2021-08-21] MEDS: 0.9 % Sodium Chloride 1,000 ML IVC SCH (11:13)
[2021-08-21] MEDS: rOPINIRole 2 MG, rOPINIRole 3 MG PO SCH (20:07)
[2021-08-22] MEDS: 0.9 % Sodium Chloride 1,000 ML IVC SCH ×3 (01:25→20:31)
[2021-08-22 01:46] LABS: Hematocrit 33.8 % (35.3-44.9); Mean Corpuscular HGB Conc 35.5 g/dL (31.6-35.5); Mean Corpuscular Hemoglobin 33.3 pg (28.0-33.3); Mean Corpuscular Volume 93.9 fL (83.0-100.0); Mean Platelet Volume 10.2 fL (9.4-12.4); Platelet Count 291 K/mcL (140-400); Red Cell Distribution Width 11.9 % (11.5-14.5); White Blood Count 7.5 K/mcL (4.3-11.1)
[2021-08-22 02:06] LABS: BUN/Creatinine Ratio 19 (6-26); Blood Urea Nitrogen 16 mg/dL (8-23); Calcium 8.9 mg/dL (8.6-10.3); Carbon Dioxide 23 mEq/L (23-29); Chloride 103 mEq/L (98-107); Glucose 94 mg/dL (70-105); Osmolality,Calculated 277 (280-300); Sodium 133 mEq/L (136-145); eGFR For African Americans > 60 (> 60); eGFR For Non-African Americans > 60 (> 60)
[2021-08-22] MEDS: Levothyroxine 25 MCG TABLET PO SCH ×2 (05:23→23:43)
[2021-08-22] MEDS: amLODIPine 5 MG TABLET PO SCH (08:13)
[2021-08-22] MEDS: cefTRIAXone 1,000 MG in Water for inj. (sterile) 10 ML IVP SCH (08:13)
[2021-08-22] MEDS: Aspirin Enteric Coated 81 MG Tablet PO SCH (08:13)
[2021-08-22] MEDS: rOPINIRole 1 MG TABLET PO SCH ×2 (09:30→15:16)
[2021-08-22] MEDS: Metoprolol XL (24 HR) Succ 25 MG TAB.ER.24H PO SCH (20:31)
[2021-08-22] MEDS: rOPINIRole 2 MG, rOPINIRole 3 MG PO SCH (20:31)
[2021-08-23 05:46] LABS: Hematocrit 34.3 % (35.3-44.9); Mean Corpuscular Hemoglobin 32.8 pg (28.0-33.3); Mean Corpuscular Volume 93.7 fL (83.0-100.0); Mean Platelet Volume 10.1 fL (9.4-12.4); Platelet Count 313 K/mcL (140-400); Red Blood Count 3.66 M/mcL (3.82-4.97); Red Cell Distribution Width 11.9 % (11.5-14.5); White Blood Count 8.1 K/mcL (4.3-11.1)
[2021-08-23 06:05] LABS: BUN/Creatinine Ratio 16 (6-26); Blood Urea Nitrogen 15 mg/dL (8-23); Calcium 9.1 mg/dL (8.6-10.3); Carbon Dioxide 23 mEq/L (23-29); Chloride 101 mEq/L (98-107); Glucose 76 mg/dL (70-105); Osmolality,Calculated 274 (280-300); Potassium 3.8 mEq/L (3.5-5.1); Sodium 132 mEq/L (136-145); eGFR For African Americans > 60 (> 60); eGFR For Non-African Americans 57 (> 60)
[2021-08-23] MEDS ORDERED: EPHEDrine 50 MG/ML VIAL ONE (09:21)
[2021-08-23] MEDS ORDERED: *HR* Propofol 200 MG/20 ML VIAL IVP ONE (09:31)
[2021-08-23] MEDS ORDERED: Ondansetron 4 MG/2 ML VIAL ONE (10:00)
[2021-08-23] MEDS ORDERED: *HR* HYDROMORPHONE 2 MG/ML VIAL ONE (10:57)
[2021-08-23] MEDS ORDERED: Morphine Sulfate 2 MG/ML SYRINGE IVP PRN (12:14)
[2021-08-23] MEDS: rOPINIRole 1 MG TABLET PO SCH ×2 (16:22→16:32)
[2021-08-23] MEDS: amLODIPine 5 MG TABLET PO SCH (18:08)
[2021-08-23] MEDS: Aspirin Enteric Coated 81 MG Tablet PO SCH (18:08)
[2021-08-23] MEDS: *HR* OxyCODONE Immed Rel 5 MG TABLET PO PRN (19:57)
[2021-08-23] MEDS: Clindamycin 900 MG/50 ML 900 MG/50 ML IV.SOLN IVPB SCH (21:53)
[2021-08-23] MEDS: rOPINIRole 2 MG, rOPINIRole 3 MG PO SCH (21:54)
[2021-08-23] MEDS: Metoprolol XL (24 HR) Succ 25 MG TAB.ER.24H PO SCH (21:54)
[2021-08-23] MEDS: 0.9 % Sodium Chloride 1,000 ML IVC SCH (21:55)
[2021-08-24] MEDS: Melatonin 3 MG TABLET PO PRN (01:58)
[2021-08-24] MEDS: *HR* OxyCODONE Immed Rel 5 MG TABLET PO PRN ×4 (02:06→21:24)
[2021-08-24 05:23] LABS: Hematocrit 32.4 % (35.3-44.9); Hemoglobin 11.4 g/dL (11.5-15.4); Mean Corpuscular HGB Conc 35.2 g/dL (31.6-35.5); Mean Corpuscular Hemoglobin 32.7 pg (28.0-33.3); Mean Corpuscular Volume 92.8 fL (83.0-100.0); Mean Platelet Volume 10.2 fL (9.4-12.4); Platelet Count 276 K/mcL (140-400); Red Blood Count 3.49 M/mcL (3.82-4.97); Red Cell Distribution Width 11.8 % (11.5-14.5); White Blood Count 10.4 K/mcL (4.3-11.1)
[2021-08-24 05:39] LABS: BUN/Creatinine Ratio 17 (6-26); Blood Urea Nitrogen 15 mg/dL (8-23); Calcium 9.2 mg/dL (8.6-10.3); Carbon Dioxide 27 mEq/L (23-29); Chloride 98 mEq/L (98-107); Glucose 152 mg/dL (70-105); Osmolality,Calculated 278 (280-300); Potassium 4.2 mEq/L (3.5-5.1); Sodium 132 mEq/L (136-145); eGFR For African Americans > 60 (> 60); eGFR For Non-African Americans > 60 (> 60)
[2021-08-24] MEDS: Clindamycin 900 MG/50 ML 900 MG/50 ML IV.SOLN IVPB SCH (06:54)
[2021-08-24] MEDS: Levothyroxine 25 MCG TABLET PO SCH (06:54)
[2021-08-24] MEDS: Aspirin Enteric Coated 81 MG Tablet PO SCH (07:33)
[2021-08-24] MEDS: amLODIPine 5 MG TABLET PO SCH (07:33)
[2021-08-24] MEDS: rOPINIRole 1 MG TABLET PO SCH ×2 (12:37→16:46)
[2021-08-24] MEDS: Metoprolol XL (24 HR) Succ 25 MG TAB.ER.24H PO SCH (21:24)
[2021-08-24] MEDS: rOPINIRole 2 MG, rOPINIRole 3 MG PO SCH (21:25)
[2021-08-25] MEDS: Levothyroxine 25 MCG TABLET PO SCH (05:15)
[2021-08-25] MEDS: *HR* OxyCODONE Immed Rel 5 MG TABLET PO PRN ×3 (05:15→19:49)
[2021-08-25 07:56] LABS: Hematocrit 33.3 % (35.3-44.9); Hemoglobin 11.4 g/dL (11.5-15.4); Mean Corpuscular HGB Conc 34.2 g/dL (31.6-35.5); Mean Corpuscular Hemoglobin 32.7 pg (28.0-33.3); Mean Corpuscular Volume 95.4 fL (83.0-100.0); Mean Platelet Volume 10.3 fL (9.4-12.4); Platelet Count 260 K/mcL (140-400); Red Blood Count 3.49 M/mcL (3.82-4.97); Red Cell Distribution Width 12.1 % (11.5-14.5); White Blood Count 10.2 K/mcL (4.3-11.1)
[2021-08-25 08:04] LABS: BUN/Creatinine Ratio 22 (6-26); Blood Urea Nitrogen 21 mg/dL (8-23); Calcium 9.2 mg/dL (8.6-10.3); Carbon Dioxide 23 mEq/L (23-29); Chloride 100 mEq/L (98-107); Glucose 78 mg/dL (70-105); Osmolality,Calculated 272 (280-300); Potassium 4.2 mEq/L (3.5-5.1); Sodium 130 mEq/L (136-145); eGFR For African Americans > 60 (> 60); eGFR For Non-African Americans 58 (> 60)
[2021-08-25] MEDS: amLODIPine 5 MG TABLET PO SCH (08:42)
[2021-08-25] MEDS: Aspirin Enteric Coated 81 MG Tablet PO SCH (08:42)
[2021-08-25 11:16] VITALS: O2SAT 97
[2021-08-25] MEDS: rOPINIRole 1 MG TABLET PO SCH ×2 (12:12→16:43)
[2021-08-25] MEDS ORDERED: E-Z-HD (BARIUM SULF) SUSPENSION PO ONE (13:27)
[2021-08-25] MEDS ORDERED: E-Z-PAQUE (BARIUM SULF) SUSP 1 BOTTLE PO ONE (13:27)
[2021-08-25 17:01] LABS: Influenza A PCR Negative (Negative); Influenza B PCR Negative (Negative); Resp. Syncytial Virus PCR Negative (Negative)
[2021-08-25 17:03] LABS: SARS-CoV-2 by PCR (In House) Negative (Negative)
[2021-08-25 21:55] VITALS: BP 134/74; PULSE 67; TEMP 97.9
[2021-08-25] MEDS: Metoprolol XL (24 HR) Succ 25 MG TAB.ER.24H PO SCH (21:56)
[2021-08-25] MEDS: rOPINIRole 2 MG, rOPINIRole 3 MG PO SCH (21:56)
[2021-08-26] MEDS ORDERED: amLODIPine 5 MG TABLET PO SCH (09:00)
== END 2021-08-25 22:28 | DRG 552 ==
LOC: 3BNU 14:22 → EMEROOARM 14:22 → SUATTDRO 20:43 → 3BNU 21:37 → 4WAOSI 08-23 13:02 → SUATTDRO 08-24 14:50
PROVIDERS: ADMIT Student in an Organized Health Care Education/Training Program; ATTEND Pharmacist

== ENCOUNTER 2022-01-17 06:16 | Observation (INO) ==
[~2022-01-17 06:16] MED LIST: Famotidine 20 MG/2 ML VIAL IVP ONE
[2022-01-17] MEDS ORDERED: Albuterol 2.5 MG/3 ML NEBULIZER IH ONE (06:41)
[2022-01-17] MEDS ORDERED: *HR* OxyCODONE Immed Rel 5 MG TABLET PO ONE (07:00)
[2022-01-17] MEDS ORDERED: Acetaminophen IV 1,000 MG/100 ML BAG IVPB ONE (07:00)
[2022-01-17] MEDS ORDERED: Gabapentin 300 MG CAPSULE PO ONE (07:00)
[2022-01-17] MEDS ORDERED: tiZANidine 4 MG TABLET PO ONE (07:00)
[2022-01-17] MEDS ORDERED: Clindamycin 900 MG/50 ML 900 MG/50 ML IV.SOLN IVPB ONE (07:10)
[2022-01-17] MEDS ORDERED: Ringers Solution, Lactated 1,000 ML IVC SCH (07:15)
[2022-01-17] MEDS ORDERED: Ondansetron 4 MG/2 ML VIAL ONE (07:26)
[2022-01-17] MEDS ORDERED: *HR* FentaNYL (PF) 100 MCG/2 ML VIAL ONE (07:26)
[2022-01-17] MEDS ORDERED: Lidocaine -MPF 2% 5 ML VIAL ONE (07:26)
[2022-01-17] MEDS ORDERED: *HR* Succinylcholine 200 MG/10 ML VIAL IVP ONE (07:26)
[2022-01-17] MEDS ORDERED: *HR* Propofol 200 MG/20 ML VIAL IVP ONE (07:26)
[2022-01-17] MEDS ORDERED: Vancomycin 1,000 MG VIAL ONE ×2 (07:28→14:00)
[2022-01-17] MEDS ORDERED: *HR* Remifentanil 2 MG VIAL IVP ONE ×2 (07:39→12:37)
[2022-01-17] MEDS ORDERED: *HR* Phenylephrine 10 MG/ML VIAL ONE (07:46)
[2022-01-17] MEDS ORDERED: Polymyxin B Sulfate 500,000 UNIT, Sodium Chloride IRRigation 1,000 ML IR ONE (08:15)
[2022-01-17] MEDS ORDERED: Lidocaine HCL 4 ML Topical Solution (Laryng-O-Jet Kit Sterile Pak) TP ONE (08:16)
[2022-01-17] MEDS ORDERED: Heparin 1,000 UNITS/500 mL 500 ML ONE (08:17)
[2022-01-17] MEDS ORDERED: *HR* Rocuronium Bromide 50 MG/5 ML VIAL ONE (09:00)
[2022-01-17] MEDS ORDERED: *HR* HYDROmorphone PF 0.5 MG/0.5 ML SYRINGE IVP PRN (10:36)
[2022-01-17] MEDS ORDERED: Ondansetron 4 MG/2 ML VIAL IVP PRN ×2 (10:36→17:30)
[2022-01-17] MEDS ORDERED: Albumin Human 5% 25.0 GM/500 ML IV.SOLN ONE (15:15)
[2022-01-17] MEDS: Albumin Human 5% 12.5 GM/250 ML IV.SOLN IVC SCH ×2 (15:18→16:35)
[2022-01-17] MEDS ORDERED: Calcium Gluconate 1,000 MG/10 ML VIAL ONE ×2 (15:21→15:24)
[2022-01-17 15:38] LABS: Basophils % 0.2 %; Hematocrit 23.9 % (35.3-44.9); Immature Granulocytes % 0.9 % (0-4); Lymphocytes # 0.3 K/mcL (0.6-4.6); Lymphocytes % 2.7 %; Mean Corpuscular HGB Conc 34.7 g/dL (31.6-35.5); Mean Corpuscular Hemoglobin 32.9 pg (28.0-33.3); Mean Corpuscular Volume 94.8 fL (83.0-100.0); Monocytes # 0.1 K/mcL (0.0-1.3); Monocytes % 1.2 %; Neutrophils # 11.1 K/mcL (1.6-8.9); Platelet Count 170 K/mcL (140-400); Red Blood Count 2.52 M/mcL (3.82-4.97); Red Cell Distribution Width 12.6 % (11.5-14.5); White Blood Count 11.7 K/mcL (4.3-11.1)
[2022-01-17 15:42] LABS: Hemoglobin 8.3 g/dL (11.5-15.4)
[2022-01-17 15:48] LABS: INR 1.3; Prothrombin Time 14.8 Seconds (9.4-12.1)
[2022-01-17 15:56] LABS: BUN/Creatinine Ratio 18 (6-26); Blood Urea Nitrogen 14 mg/dL (8-23); Calcium 7.6 mg/dL (8.6-10.3); Carbon Dioxide 21 mEq/L (23-29); Chloride 100 mEq/L (98-107); Glucose 179 mg/dL (70-105); Osmolality,Calculated 277 (280-300); Potassium 3.8 mEq/L (3.5-5.1); Sodium 131 mEq/L (136-145); eGFR For African Americans > 60 (> 60); eGFR For Non-African Americans > 60 (> 60)
[2022-01-17] MEDS: *HR* FentaNYL (PF) 100 MCG/2 ML VIAL IVP PRN ×2 (16:28→16:33)
[2022-01-17] MEDS ORDERED: *HR* OxyCODONE Immed Rel 5 MG TABLET PO STA (17:04)
[2022-01-17] MEDS ORDERED: Naloxone 0.4 MG/ML INJ IVP PRN (17:30)
[2022-01-17] MEDS ORDERED: Acetaminophen 325 MG TABLET PO PRN (17:30)
[2022-01-17] MEDS: CeFAZolin 2 GM/120 ML BAG IVPB SCH (19:40)
[2022-01-17] MEDS: Ringers Solution, Lactated 1,000 ML IVC SCH (19:41)
[2022-01-17] MEDS: Metoprolol XL (24 HR) Succ 50 MG TAB.ER.24H PO SCH (19:41)
[2022-01-17] MEDS: Fluticasone Propionate Nasal 50 MCG/SPRAY BOTTLE NS SCH (21:29)
[2022-01-17] MEDS: (Ipratropium Bromide 15 ML Spray) NS SCH (21:29)
[2022-01-17] MEDS: Budesonide/Formoterol 160/4.5 1 PUFF INH IH SCH (21:32)
[2022-01-17] MEDS: rOPINIRole 1 MG TABLET PO SCH (21:35)
[2022-01-18] MEDS: *HR* OxyCODONE Immed Rel 5 MG TABLET PO PRN ×4 (02:27→19:58)
[2022-01-18] MEDS: CeFAZolin 2 GM/120 ML BAG IVPB SCH (02:27)
[2022-01-18] MEDS: Levothyroxine 25 MCG TABLET PO SCH (05:43)
[2022-01-18] MEDS ORDERED: ADALIMUMAB 40 MG/0.8 ML SQ SCH (09:00)
[2022-01-18] MEDS: Multivit/Ca/Min/Fe/FA 1 TAB TABLET PO SCH (09:33)
[2022-01-18] MEDS: Cholecalciferol (D-3) 1,000 UNIT (25MCG) TABLET PO SCH (09:33)
[2022-01-18] MEDS: Aspirin Enteric Coated 81 MG Tablet PO SCH (09:33)
[2022-01-18] MEDS: amLODIPine 5 MG TABLET PO SCH (09:33)
[2022-01-18] MEDS: rOPINIRole 1 MG TABLET PO SCH ×3 (09:34→19:58)
[2022-01-18] MEDS: Folic Acid 1 MG TABLET PO SCH (09:35)
[2022-01-18] MEDS: Fluticasone Propionate Nasal 50 MCG/SPRAY BOTTLE NS SCH ×2 (09:35→19:58)
[2022-01-18] MEDS: Budesonide/Formoterol 160/4.5 1 PUFF INH IH SCH ×2 (11:18→19:42)
[2022-01-18] MEDS: Ringers Solution, Lactated 1,000 ML IVC SCH (14:27)
[2022-01-18] MEDS ORDERED: 0.9 % Sodium Chloride 500 ML ONE (15:52)
[2022-01-18] MEDS: 0.9 % Sodium Chloride 500 ML IVC ONE ×2 (15:56→16:47)
[2022-01-18 16:26] LABS: Basophils % 0.2 %; Eosinophils # 0.1 K/mcL (0.0-0.6); Eosinophils % 0.6 %; Hematocrit 20.2 % (35.3-44.9); Hemoglobin 7.1 g/dL (11.5-15.4); Immature Granulocytes % 0.3 % (0-4); Lymphocytes # 1.9 K/mcL (0.6-4.6); Lymphocytes % 16.7 %; Mean Corpuscular HGB Conc 35.1 g/dL (31.6-35.5); Mean Corpuscular Hemoglobin 33.6 pg (28.0-33.3); Mean Corpuscular Volume 95.7 fL (83.0-100.0); Mean Platelet Volume 10.6 fL (9.4-12.4); Monocytes # 1.4 K/mcL (0.0-1.3); Monocytes % 12.5 %; Neutrophils # 7.7 K/mcL (1.6-8.9); Platelet Count 154 K/mcL (140-400); Red Blood Count 2.11 M/mcL (3.82-4.97); Red Cell Distribution Width 12.6 % (11.5-14.5); Segmented Neutrophils % 69.7 %; White Blood Count 11.1 K/mcL (4.3-11.1)
[2022-01-18 16:58] LABS: Calcium 8.2 mg/dL (8.6-10.3); Potassium 4.9 mEq/L (3.5-5.1)
[2022-01-18] MEDS: Metoprolol XL (24 HR) Succ 50 MG TAB.ER.24H PO SCH (17:12)
[2022-01-18] MEDS ORDERED: 0.9 % Sodium Chloride 1,000 ML IVC SCH (17:45)
[2022-01-18] MEDS: Simethicone 80 MG TAB.CHEW PO SCH ×2 (18:08→19:58)
[2022-01-18] MEDS: 0.9 % Sodium Chloride 1,000 ML IVC SCH (18:09)
[2022-01-18] MEDS: CALCIUM CITRATE PO SCH (18:11)
[2022-01-18] MEDS: VITAMIN D3 PO SCH (18:11)
[2022-01-18] MEDS: (Ipratropium Bromide 15 ML Spray) NS SCH ×2 (18:11→19:59)
[2022-01-18] MEDS: Famotidine 20 MG TABLET PO SCH (19:57)
[2022-01-19] MEDS: 0.9 % Sodium Chloride 1,000 ML IVC SCH ×2 (02:20→09:34)
[2022-01-19] MEDS: *HR* OxyCODONE Immed Rel 5 MG TABLET PO PRN ×4 (02:23→20:00)
[2022-01-19] MEDS: Levothyroxine 25 MCG TABLET PO SCH (05:50)
[2022-01-19 06:36] LABS: Basophils % 0.3 %; Eosinophils # 0.2 K/mcL (0.0-0.6); Eosinophils % 1.3 %; Hematocrit 20.4 % (35.3-44.9); Immature Granulocytes % 0.4 % (0-4); Lymphocytes # 1.6 K/mcL (0.6-4.6); Lymphocytes % 13.5 %; Mean Corpuscular HGB Conc 34.3 g/dL (31.6-35.5); Mean Corpuscular Hemoglobin 33.8 pg (28.0-33.3); Mean Corpuscular Volume 98.6 fL (83.0-100.0); Mean Platelet Volume 10.9 fL (9.4-12.4); Monocytes # 1.6 K/mcL (0.0-1.3); Monocytes % 13.5 %; Neutrophils # 8.1 K/mcL (1.6-8.9); Platelet Count 145 K/mcL (140-400); Red Blood Count 2.07 M/mcL (3.82-4.97); Red Cell Distribution Width 12.4 % (11.5-14.5); White Blood Count 11.5 K/mcL (4.3-11.1)
[2022-01-19] MEDS: Aspirin Enteric Coated 81 MG Tablet PO SCH (09:24)
[2022-01-19] MEDS: Simethicone 80 MG TAB.CHEW PO SCH ×2 (09:24→20:00)
[2022-01-19] MEDS: Cholecalciferol (D-3) 1,000 UNIT (25MCG) TABLET PO SCH (09:24)
[2022-01-19] MEDS: Folic Acid 1 MG TABLET PO SCH (09:25)
[2022-01-19] MEDS: rOPINIRole 1 MG TABLET PO SCH ×3 (09:25→20:00)
[2022-01-19] MEDS: Multivit/Ca/Min/Fe/FA 1 TAB TABLET PO SCH (09:25)
[2022-01-19] MEDS: amLODIPine 5 MG TABLET PO SCH (09:25)
[2022-01-19] MEDS: Famotidine 20 MG TABLET PO SCH (09:25)
[2022-01-19] MEDS: (Ipratropium Bromide 15 ML Spray) NS SCH ×2 (09:34→20:00)
[2022-01-19] MEDS: VITAMIN D3 PO SCH (09:34)
[2022-01-19] MEDS: CALCIUM CITRATE PO SCH (09:34)
[2022-01-19] MEDS: Fluticasone Propionate Nasal 50 MCG/SPRAY BOTTLE NS SCH ×2 (09:35→19:59)
[2022-01-19] MEDS: Budesonide/Formoterol 160/4.5 1 PUFF INH IH SCH ×2 (10:17→19:49)
[2022-01-19] MEDS ORDERED: Dextrose 4 GM Chewable Tablets PO PRN ×2 (14:18)
[2022-01-19] MEDS ORDERED: D5% in Water 1,000 ML IVC PRN (14:18)
[2022-01-19] MEDS ORDERED: *HR* Dextrose 50 % in Water (Syg) 50 ML SYRINGE IVP PRN (14:18)
[2022-01-19] MEDS ORDERED: 0.9 % Sodium Chloride 250 ML ONE (14:24)
[2022-01-19] MEDS: polyethylene glycoL 3350 17 GM POWD.PACK PO SCH (16:01)
[2022-01-19] MEDS: Metoprolol XL (24 HR) Succ 50 MG TAB.ER.24H PO SCH (18:01)
[2022-01-19] MEDS: Insulin LISPRO 300 UNITS/3 ML VIAL SUBQ SCH ×2 (18:03→23:58)
[2022-01-19 20:59] LABS: Hematocrit 26.4 % (35.3-44.9); Hemoglobin 8.9 g/dL (11.5-15.4)
[2022-01-20] MEDS: *HR* OxyCODONE Immed Rel 5 MG TABLET PO PRN (04:07)
[2022-01-20 04:34] LABS: Hematocrit 27.8 % (35.3-44.9); Hemoglobin 9.4 g/dL (11.5-15.4)
[2022-01-20] MEDS: Insulin LISPRO 300 UNITS/3 ML VIAL SUBQ SCH ×2 (06:00→12:15)
[2022-01-20] MEDS: Levothyroxine 25 MCG TABLET PO SCH (06:00)
[2022-01-20] MEDS: Budesonide/Formoterol 160/4.5 1 PUFF INH IH SCH (07:37)
[2022-01-20] MEDS: VITAMIN D3 PO SCH (08:45)
[2022-01-20] MEDS: (Ipratropium Bromide 15 ML Spray) NS SCH (08:45)
[2022-01-20] MEDS: CALCIUM CITRATE PO SCH (08:45)
[2022-01-20] MEDS: Folic Acid 1 MG TABLET PO SCH (08:52)
[2022-01-20] MEDS: rOPINIRole 1 MG TABLET PO SCH ×2 (08:52→15:28)
[2022-01-20] MEDS: Simethicone 80 MG TAB.CHEW PO SCH (08:53)
[2022-01-20] MEDS: amLODIPine 5 MG TABLET PO SCH (08:53)
[2022-01-20] MEDS: Aspirin Enteric Coated 81 MG Tablet PO SCH (08:54)
[2022-01-20] MEDS: Fluticasone Propionate Nasal 50 MCG/SPRAY BOTTLE NS SCH (08:54)
[2022-01-20] MEDS: Multivit/Ca/Min/Fe/FA 1 TAB TABLET PO SCH (08:54)
[2022-01-20] MEDS: polyethylene glycoL 3350 17 GM POWD.PACK PO SCH (08:54)
[2022-01-20] MEDS: Cholecalciferol (D-3) 1,000 UNIT (25MCG) TABLET PO SCH (08:54)
[2022-01-20] MEDS ORDERED: Famotidine 20 MG TABLET PO SCH (09:00)
[2022-01-20] MEDS ORDERED: *HR* OxyCODONE Immed Rel 5 MG TABLET PO PRN (10:09)
[2022-01-20 10:50] LABS: Influenza A PCR Negative (Negative); Influenza B PCR Negative (Negative); Resp. Syncytial Virus PCR Negative (Negative)
[2022-01-20] MEDS ORDERED: Acetaminophen IV 1,000 MG/100 ML BAG IVPB ONE (11:00)
[2022-01-20 11:01] LABS: SARS-CoV-2 by PCR (In House) Negative (Negative)
[2022-01-20 14:31] VITALS: BP 118/68; PULSE 69; TEMP 98.1; O2SAT 95
[2022-01-20] MEDS ORDERED: Metoclopramide 10 MG/2 ML VIAL IVP SCH (18:09)
== END 2022-01-20 17:48 ==
LOC: 4WAOSI 06:16 → SDCAOSI 06:16 → 4WAOSI 17:27
PROVIDERS: ADMIT Orthopaedic Surgery Orthopaedic Surgery of the Spine; ATTEND Orthopaedic Surgery Orthopaedic Surgery of the Spine